=== PATIENT | male | born 1960 | race African-American/Black ===

== ENCOUNTER 2017-10-29 09:34 | Emergency (ER) | payer MEDICAID ==
[~2017-10-29] VITALS: Ht 190.5 cm; Wt 113.4 kg
[~2017-10-29 09:34] MED LIST: AMLO10TA2 PO; ASPI-39 PO; CLON0.2T; FURO-69 PO; GLIP2.5T4 PO; HYDR-2869 PO; PREG75CA PO
[2017-10-29 10:51] LABS: HEMOGLOBIN 9.6 g/dL (13.0-17.5); RED BLOOD COUNT 3.23 x10^6/uL (4.30-5.70); RED CELL DISTRIBUTION WIDTH 14.5 % (11.5-14.5); WHITE BLOOD COUNT 5.3 x10^3/uL (4.0-11.0)
[2017-10-29] MEDS ORDERED: HYDROmorphone 2 MG/ML VIAL IV ONE (11:00)
[2017-10-29] MEDS ORDERED: ONDANSETRON PF 4 MG/2 ML VIAL. IV ONE (11:00)
--- NOTE | 2017-10-29 11:03 | PHYS DOC ---
Past Medical History Past Medical History: Diabetes-Type II, Hypertension, Pancreatitis, Other Additional Past Medical Histor: NEUROPATHY Past Surgical History: Cholecystectomy, Other Additional Past Surgical Histo: LUE SHUNT, R TOES AMPUTATION Alcohol Use: None Drug Use: None Adult General Chief Complaint Chief Complaint: SKIN PROBLEM HPI HPI Patient is a 56 year old male with a history of diabetes, hypertension on dialysis (Sunday, , Sunday) presents to the ED complaining of hand pain times one month. Patient states he's been having pain in his fingers over the last month. States he has had some peeling at the end of his fingertips and bleeding. Describes the pain as sharp. Rates the pain as 8 out of 10. States his vendor analyst told him it is due to his dialysis. Denies decreased range of motion, trauma/injury, fever, chest pain, shortness of breath, dizziness, nausea /vomiting, abdominal pain, headache or weakness. Review of Systems Review of Systems Constitutional: Denies fever or chills [] Eyes: Denies change in visual acuity, redness, or eye pain [] HENT: Denies nasal congestion or sore throat [] Respiratory: Denies cough or shortness of breath [] Cardiovascular: No additional information not addressed in HPI [] GI: Denies abdominal pain, nausea, vomiting, bloody stools or diarrhea [] : Denies dysuria or hematuria [] Musculoskeletal: Denies back pain or joint pain [] Integument: Denies rash or skin lesions [] Neurologic: Denies headache, focal weakness or sensory changes [] Endocrine: Denies polyuria or polydipsia [] All other systems were reviewed and found to be within normal limits, except as documented in this note. Current Medications Current Medications Current Medications Medications (Trade) Dose Ordered Sig/Steven Start Time Stop Time Status Last Admin Dose Admin Diphenhydramine HCl (Benadryl) 25 mg 1X ONCE 10/29/17 11:30 10/29/17 11:31 DC 10/29/17 11:31 25 MG Hydralazine HCl (Apresoline Inj) 20 mg 1X ONCE 10/29/17 13:00 10/29/17 13:01 DC 10/29/17 12:59 20 MG Hydromorphone HCl (Dilaudid) 0.5 mg 1X ONCE 10/29/17 11:00 10/29/17 11:05 DC 10/29/17 11:19 0.5 MG Ondansetron HCl (Zofran) 4 mg 1X ONCE 10/29/17 11:00 10/29/17 11:04 DC 10/29/17 11:18 4 MG Allergies Allergies Allergies Coded Allergies Type Severity Reaction Last Updated Verified lisinopril Allergy Intermediate 10/29/17 Yes morphine Allergy Intermediate 10/29/17 Yes Physical Exam Physical Exam Constitutional: Well developed, well nourished, no acute distress, non-toxic appearance. [] HENT: Normocephalic, atraumatic, oropharynx moist Eyes: PERRLA, EOMI, conjunctiva normal, no discharge. [] Neck: Normal range of motion, no tenderness, supple, no stridor. [] Cardiovascular:Heart rate regular rhythm, no murmur [] Lungs & Thorax: Bilateral breath sounds clear to auscultation [] Abdomen: Bowel sounds normal, soft, no tenderness, no masses, no pulsatile masses. [] Skin: Warm, dry, no erythema, no rash. [] Back: No tenderness, no CVA tenderness. [] Extremities: PEELING SKIN TO BILATERAL FINGERTIPS. WOUND TO RIGHT THIRD FINGER TIP. 2+ PULSES. NORMAL CAPILLARY REFILL. NV INTACT. No tenderness, no cyanosis, no clubbing, ROM intact, no edema. [] Neurologic: Alert and oriented X 3, normal motor function, normal sensory function, no focal deficits noted. [] Psychologic: Affect normal, judgement normal, mood normal. [] Current Patient Data Vital Signs Vital Signs Date Time Temp Pulse Resp B/P (MAP) Pulse Ox O2 Delivery O2 Flow Rate FiO2 10/29/17 13:13 73 14 176/96 (122) 98 Room Air 10/29/17 10:31 97.9 97.9 Lab Values Laboratory Tests Test 10/29/17 10:45 White Blood Count 5.3 x10^3/uL (4.0-11.0) Red Blood Count 3.23 x10^6/uL (4.30-5.70) L Hemoglobin 9.6 g/dL (13.0-17.5) L Hematocrit 29.0 % (39.0-53.0) L Mean Corpuscular Volume 90 fL (79-100) Mean Corpuscular Hemoglobin 30 pg (25-35) Mean Corpuscular Hemoglobin Concent 33 g/dL (31-37) Red Cell Distribution Width 14.5 % (11.5-14.5) Platelet Count 126 x10^3/uL (140-400) L Sodium Level 140 mmol/L (136-145) Potassium Level 5.1 mmol/L (3.5-5.1) Chloride Level 101 mmol/L (98-107) Carbon Dioxide Level 25 mmol/L (21-32) Anion Gap 14 (6-14) Blood Urea Nitrogen 41 mg/dL (8-26) H Creatinine 8.4 mg/dL (0.7-1.3) H Estimated GFR (Cockcroft-Gault) 8.1 BUN/Creatinine Ratio 5 (6-20) L Glucose Level 321 mg/dL (70-99) H Calcium Level 8.9 mg/dL (8.5-10.1) Total Bilirubin 0.4 mg/dL (0.2-1.0) Aspartate Amino Transferase (AST) 13 U/L (15-37) L Alanine Aminotransferase (ALT) 12 U/L (16-63) L Alkaline Phosphatase 121 U/L (46-116) H Total Protein 7.4 g/dL (6.4-8.2) Albumin 3.2 g/dL (3.4-5.0) L Albumin/Globulin Ratio 0.8 (1.0-1.7) L Laboratory Tests 10/29/17 10:45 Laboratory Tests 10/29/17 10:45 EKG EKG [] Radiology/Procedures Radiology/Procedures [] Course & Med Decision Making Course & Med Decision Making Pertinent Labs and Imaging studies reviewed. (See chart for details) Discussed case with attending physician, Dr. Mas. Agrees with evaluation and plan. Patient states he really just needs something to help with the pain. Patient's fingers cleaned and dressed. Possible dialysis calcium abnormality is the cause. Discussed wound care and Neosporin treatment. Will cover with Keflex. Patient well-appearing otherwise. Blood pressure improved and pain controlled in ED. Discussed follow-up for serial blood pressure monitoring and risks if he does not. Patient states he will take his BP medicine when he returns home. Discussed follow-up with his vendor analyst this week. States he has an appointment in a few days. Discussed reasons to return to the ED. Patient understands and agrees with plan. Dragon Disclaimer Dragon Disclaimer This electronic medical record was generated, in whole or in part, using a voice recognition dictation system. Departure Departure Impression: Primary Impression: Wound, open, finger Disposition: 01 HOME, SELF-CARE Condition: IMPROVED Referrals: UNKNOWN PCP NAME (PCP) Patient Instructions: Wound Care, [id number] Additional Instructions: FOLLOW-UP WITH DR. GAGNON- CATERING SERVICE MANAGER Scripts Oxycodone/Apap 5-325 (PERCOCET 5-325 MG TABLET) 1 Each Tablet 1-2 TAB PO Q4-6HRS for 3 Days, #12 TAB Prov: VALERIA RIOS 10/29/17 Cephalexin (CEPHALEXIN) 500 Mg Capsule 1 CAP PO QID for 10 Days, #40 CAP Prov: VALERIA RIOS 10/29/17 VALERIA RIOS Oct 29, 2017 11:03
[2017-10-29] MEDS ORDERED: hydrALAZINE 20 MG/ML VIAL. IVP ONE ×2 (11:15→13:00)
[2017-10-29 11:23] LABS: CALCIUM 8.9 mg/dL (8.5-10.1); CREATININE 8.4 mg/dL (0.7-1.3); GFR 8.1; POTASSIUM 5.1 mmol/L (3.5-5.1)
[2017-10-29 11:28] LABS: ALBUMIN 3.2 g/dL (3.4-5.0); ALBUMIN/GLOBULIN RATIO 0.8 (1.0-1.7); TOTAL BILIRUBIN 0.4 mg/dL (0.2-1.0); TOTAL PROTEIN 7.4 g/dL (6.4-8.2)
[2017-10-29] MEDS ORDERED: diphenhydrAMINE 50 MG/ML VIAL IVP ONE (11:30)
[2017-10-29] MEDS ORDERED: OXYC-323 PO (11:36)
[2017-10-29] MEDS ORDERED: CEPH500C PO (11:36)
[2017-10-29 13:13] VITALS: BP 176/96
== END 2017-10-29 13:20 | disposition home or self-care (01) ==
LOC: ER 09:34
DX: S61.202A Unspecified open wound of right middle finger without damage to nail, initial encounter (principal); E11.40 Type 2 diabetes mellitus with diabetic neuropathy, unspecified; I10 Essential (primary) hypertension; Z90.49 Acquired absence of other specified parts of digestive tract; Z99.2 Dependence on renal dialysis; Z88.5 Allergy status to narcotic agent; Z88.8 Allergy status to other drugs, medicaments and biological substances; X58.XXXA Exposure to other specified factors, initial encounter; Y93.89 Activity, other specified; Y92.89 Other specified places as the place of occurrence of the external cause; Y99.8 Other external cause status
CPT/HCPCS: 36415; 80053; 85027; 96374; 96375; 96376; 99284; J0360; J1170; J1200; J2405

== ENCOUNTER 2021-07-30 13:03 | Inpatient (IN) | payer MEDICARE, MEDICAID ==
[~2021-07-30] VITALS: Ht 190.5 cm; Wt 104.3 kg
[~2021-07-30 13:03] MED LIST changes: +AMLO-187 PO; -AMLO10TA2 PO; +CEPH500C PO; +OXYC1TAB15 PO; +PREG-9 PO; -PREG75CA PO
[2021-07-30] MEDS ORDERED: fentaNYL PF VIAL 100 MCG/2 ML VIAL IVP ONE (14:30)
--- NOTE | 2021-07-30 14:34 | PHYS DOC ---
Past Medical History Past Medical History: Diabetes-Type II, Hypertension, Pancreatitis, Other Additional Past Medical Histor: NEUROPATHY, DIALYSIS Past Surgical History: Cholecystectomy, Other Additional Past Surgical Histo: LUE SHUNT, R TOES AMPUTATION Smoking Status: Never Smoker Alcohol Use: None Drug Use: None General Adult EDM: Chief Complaint: HEADACHE HPI: HPI: 60-year-old male with a history of end-stage renal disease on dialysis Sunday and Sunday presents the emergency department complaining of nausea vomiting abdominal pain and headache for the past 5 days. He reports his abdominal pain has been present for 5 days, his headache started 2 days ago and is intermittent, located across his head, not associate with any sudden onset or trauma. He has had headaches like this in the past. His last round of dialysis was earlier today and was normal. He is dialyzed through his left AV fistula. Denies any further complaints. The patient denies nausea, vomiting, fever, chills, chest pain, shortness of breath, urinary symptoms, cough, recent trauma, or any other complaints. Review of Systems: Review of Systems: ROS otherwise negative except what was mentioned in HPI Heart Score: C/O Chest Pain: No Current Medications: Current Medications Medications (Trade) Dose Ordered Sig/Steven Start Time Stop Time Status Last Admin Dose Admin Fentanyl Citrate (Fentanyl 2ml Vial) 75 mcg 1X ONCE 07/30/21 14:30 07/30/21 14:31 Allergies: Allergies: Allergies Coded Allergies Type Severity Reaction Last Updated Verified lisinopril Allergy Intermediate 10/29/17 Yes morphine Allergy Intermediate 10/29/17 Yes Physical Exam: PE: Constitutional: No acute distress, non-toxic appearance. HENT: Atraumatic, bilateral external ears normal, nose normal. Eyes: PERRLA, EOMI, conjunctiva normal, no discharge. Neck: Normal range of motion, supple, no stridor. Cardiovascular: Heart rate regular rhythm. 2+ radial pulses Lungs & Thorax: No respiratory distress, symmetrical expansion. Abdomen: Mild diffuse tenderness Skin: Warm, dry. Extremities: No tenderness, no cyanosis, ROM intact, no edema. Left AV fistula is noted Neurologic: Alert and oriented X 3, normal motor function, normal sensory function, no focal deficits noted. Non ataxic gait. GCS 15. Psychologic: Affect normal, judgment normal, mood normal. Current Patient Data: Labs: Laboratory Tests Test 07/30/21 14:25 White Blood Count 7.5 x10^3/uL (4.0-11.0) Red Blood Count 3.18 x10^6/uL (4.30-5.70) Hemoglobin 9.4 g/dL (13.0-17.5) Hematocrit 27.5 % (39.0-53.0) Mean Corpuscular Volume 87 fL (79-100) Mean Corpuscular Hemoglobin 30 pg (25-35) Mean Corpuscular Hemoglobin Concent 34 g/dL (31-37) Red Cell Distribution Width 16.5 % (11.5-14.5) Platelet Count 74 x10^3/uL (140-400) Neutrophils (%) (Auto) 83 % (31-73) Lymphocytes (%) (Auto) 8 % (24-48) Monocytes (%) (Auto) 7 % (0-9) Eosinophils (%) (Auto) 1 % (0-3) Basophils (%) (Auto) 0 % (0-3) Neutrophils # (Auto) 6.2 x10^3/uL (1.8-7.7) Lymphocytes # (Auto) 0.6 x10^3/uL (1.0-4.8) Monocytes # (Auto) 0.5 x10^3/uL (0.0-1.1) Eosinophils # (Auto) 0.1 x10^3/uL (0.0-0.7) Basophils # (Auto) 0.0 x10^3/uL (0.0-0.2) Sodium Level 136 mmol/L (136-145) Potassium Level 3.2 mmol/L (3.5-5.1) Chloride Level 97 mmol/L (98-107) Carbon Dioxide Level 32 mmol/L (21-32) Anion Gap 7 (6-14) Blood Urea Nitrogen 13 mg/dL (8-26) Creatinine 3.4 mg/dL (0.7-1.3) Estimated GFR (Cockcroft-Gault) 22.6 BUN/Creatinine Ratio 4 (6-20) Glucose Level 104 mg/dL (70-99) Calcium Level 9.4 mg/dL (8.5-10.1) Total Bilirubin 0.7 mg/dL (0.2-1.0) Aspartate Amino Transf (AST/SGOT) 45 U/L (15-37) Alanine Aminotransferase (ALT/SGPT) 55 U/L (16-63) Alkaline Phosphatase 154 U/L (46-116) Total Protein 7.3 g/dL (6.4-8.2) Albumin 2.9 g/dL (3.4-5.0) Albumin/Globulin Ratio 0.7 (1.0-1.7) Lipase 2215 U/L (73-393) Vital Signs: Vital Signs Date Time Temp Pulse Resp B/P (MAP) Pulse Ox O2 Delivery O2 Flow Rate FiO2 07/30/21 13:55 99.0 86 16 152/90 (110) 100 Room Air 99.0 EKG: EKG: Time read: 2:50 PM Normal sinus rhythm rate of 80, no ST-T wave changes, no ectopic beats, normal axis, normal FL, QRS, and QTc intervals. Impression: Normal EKG. interpreted by meKris D.O. Radiology/Procedures: Radiology/Procedures: CT HEAD/BRAIN WO Date: 07/30/2021 2:35 PM Clinical Indication: BROWN Comparison: None. Technique: 5 mm axial tomographic images were obtained of the head without contrast. These were viewed on brain and bone windows. One or more of the following dose reduction techniques were utilized: Automated exposure control (AEC), Adjustment of mA and/or kV according to patient size, Use of iterative reconstruction technique such as ASiR, CT scan done according to ALARA and image gently/image wisely Findings: The brain parenchyma is normal in attenuation. No intra- or extra-axial mass or fluid collection. No acute hemorrhage. The ventricles are normal in size, shape, and morphology. The [place]-white matter junction is normal. The subarachnoid cisterns are patent. The visualized paranasal sinuses are normal. The visualized portions of the orbits and globes are normal. The mastoid air cells are clear. The design director topogram shows no lytic lesion or fracture. Impression: No acute intracranial process. Electronically signed by: Estuardo Phan MD (07/30/2021 3:22 PM) CT ABDOMEN+PELVIS WO History: Reason: abdominal pain / Spl. Instructions: / History: Technique: Noncontrast examination of the abdomen and pelvis. Coronal and sagittal reconstructions were performed. Exposure: One or more of the following individualized dose reduction techniques were utilized for this examination: 1. Automated exposure control 2. Adjustment of the mA and/or kV according to patient size 3. Use of iterative reconstruction technique. Comparison: None Findings: Lower chest: No consolidation or pleural effusion. Abdomen and pelvis: The liver, spleen, and adrenal glands are unremarkable. Prior cholecystectomy. Mild inflammatory changes surrounding the pancreatic head. Pancreatic head calcifications. Fullness of the pancreatic head. No peripancreatic fluid collections. Mild pancreatic ductal dilatation within the region the pancreatic head and neck. Reactive duodenal wall thickening. Extensive vascular calcifications. No renal calculus. No hydronephrosis. Mild bilateral renal atrophy. Decompressed urinary bladder with wall thickening. Mild colonic diverticulosis. Normal appendix. Mild stool filled rectum. No evidence of bowel obstruction. Postoperative changes proximal small bowel. Small peripancreatic and retroperitoneal lymph nodes. No ascites. Small bilateral fat- containing inguinal hernias. Bones: Chronic left posterior rib fractures. Small lucent lesions within the iliac bones greatest on the left measures 1.3 cm. Impression: 1. Acute on chronic pancreatitis. 2. Fullness of the pancreatic head. Recommend follow-up CT or MRI with contrast to evaluate for underlying pancreatic mass. Comparison with prior imaging studies would also be of benefit. 3. Urinary bladder wall thickening likely due to nondistention and chronic outlet obstruction. Correlate for cystitis. Electronically signed by: Jassi Hardy DO (07/30/2021 3:37 PM) Course & Med Decision Making: Course & Med Decision Making Patient with evidence for pancreatitis on imaging and on lab work. We will admit the patient to the hospital for treatment for pancreatitis. GI and nephrology consults were placed. Patient was given fentanyl and Dilaudid for pain control which was difficult to achieve in the emergency department. CT head was negative today. Patient also has suspicious mass on his CT, counseled the patient on this finding, patient will likely need additional work-up while inpatient Departure Departure Impression: Primary Impression: Pancreatitis Additional Impression: Headache Disposition: ADMITTED INPATIENT Admitting Physician: MOOK (Jordan) Condition: STABLE Referrals: TNOY VALLES (PCP) KRIS CRENSHAW DO Jul 30, 2021 14:34
[2021-07-30 14:39] LABS: BASO % 0 % (0-3); EOS # 0.1 x10^3/uL (0.0-0.7); EOS % 1 % (0-3); HEMATOCRIT 27.5 % (39.0-53.0); HEMOGLOBIN 9.4 g/dL (13.0-17.5); LYMPH # 0.6 x10^3/uL (1.0-4.8); LYMPH % 8 % (24-48); MEAN CORPUSCULAR HEMOGLOBIN 30 pg (25-35); MEAN CORPUSCULAR HGB CONC 34 g/dL (31-37); MEAN CORPUSCULAR VOLUME 87 fL (79-100); MONO # 0.5 x10^3/uL (0.0-1.1); MONO % 7 % (0-9); NEUT # 6.2 x10^3/uL (1.8-7.7); NEUT % 83 % (31-73); PLATELET COUNT 74 x10^3/uL (140-400); RED BLOOD COUNT 3.18 x10^6/uL (4.30-5.70); RED CELL DISTRIBUTION WIDTH 16.5 % (11.5-14.5); WHITE BLOOD COUNT 7.5 x10^3/uL (4.0-11.0)
--- NOTE | 2021-07-30 14:51 | EKG ---
[facility] [address] [place] [address] Test Date: 2021-07-30 Test Time: 14:44:41 Pat Name: MARCIE THOMAS Department: Room: Gender: M Data Network Architect: : 1960 Requested By: KRIS CRENSHAW Order Number: [id number] Reading MD: Measurements Intervals Dane Rate: 88 P: 43 CA: 200 QRS: 11 QRSD: 96 T: 23 QT: 368 QTc: 449 Interpretive Statements SINUS RHYTHM NORMAL ECG RI6.02 Compared to ECG 07/30/2021 14:41:38 No significant changes
[2021-07-30] MEDS ORDERED: METOCLOPRAMIDE HCL 10 MG/2 ML VIAL. IVP ONE (15:15)
[2021-07-30 15:16] LABS: CALCIUM 9.4 mg/dL (8.5-10.1); CREATININE 3.4 mg/dL (0.7-1.3); GFR 22.6; POTASSIUM 3.2 mmol/L (3.5-5.1)
[2021-07-30 15:23] LABS: ALBUMIN 2.9 g/dL (3.4-5.0); ALBUMIN/GLOBULIN RATIO 0.7 (1.0-1.7); TOTAL BILIRUBIN 0.7 mg/dL (0.2-1.0); TOTAL PROTEIN 7.3 g/dL (6.4-8.2)
--- NOTE | 2021-07-30 15:24 | RAD ---
CT HEAD/BRAIN WO Date: 07/30/2021 2:35 PM Clinical Indication: BROWN Comparison: None. Technique: 5 mm axial tomographic images were obtained of the head without contrast. These were view ed on brain and bone windows. One or more of the following dose reduction techniques were utilized: A utomated exposure control (AEC), Adjustment of mA and/or kV according to patient size, Use of iterati ve reconstruction technique such as ASiR, CT scan done according to ALARA and image gently/image mehta ly Findings: The brain parenchyma is normal in attenuation. No intra- or extra-axial mass or fluid collection. No acute hemorrhage. The ventricles are normal in size, shape, and morphology. The [place]-white matter kory ction is normal. The subarachnoid cisterns are patent. The visualized paranasal sinuses are normal. The visualized portions of the orbits and globes are no rmal. The mastoid air cells are clear. The ready to wear department manager topogram shows no lytic lesion or fracture. Impression: No acute intracranial process. Electronically signed by: Estuardo Phan MD (07/30/2021 3:22 PM) [facility]
--- NOTE | 2021-07-30 15:39 | RAD ---
CT ABDOMEN+PELVIS WO History: Reason: abdominal pain / Spl. Instructions: / History: Technique: Noncontrast examination of the abdomen and pelvis. Coronal and sagittal reconstructions we re performed. Exposure: One or more of the following individualized dose reduction techniques were utilized for thi s examination: 1. Automated exposure control 2. Adjustment of the mA and/or kV according to patient size 3. Use of iterative reconstruction technique. Comparison: None Findings: Lower chest: No consolidation or pleural effusion. Abdomen and pelvis: The liver, spleen, and adrenal glands are unremarkable. Prior cholecystectomy. Mild inflammatory changes surrounding the pancreatic head. Pancreatic head calcifications. Fullness o f the pancreatic head. No peripancreatic fluid collections. Mild pancreatic ductal dilatation within the region the pancreatic head and neck. Reactive duodenal wall thickening. Extensive vascular calcifications. No renal calculus. No hydronephrosis. Mild bilateral renal atrophy . Decompressed urinary bladder with wall thickening. Mild colonic diverticulosis. Normal appendix. Mi ld stool filled rectum. No evidence of bowel obstruction. Postoperative changes proximal small bowel. Small peripancreatic and retroperitoneal lymph nodes. No ascites. Small bilateral fat-containing ing uinal hernias. Bones: Chronic left posterior rib fractures. Small lucent lesions within the iliac bones greatest on the left measures 1.3 cm. Impression: 1. Acute on chronic pancreatitis. 2. Fullness of the pancreatic head. Recommend follow-up CT or MRI with contrast to evaluate for unde rlying pancreatic mass. Comparison with prior imaging studies would also be of benefit. 3. Urinary bladder wall thickening likely due to nondistention and chronic outlet obstruction. Corre late for cystitis. Electronically signed by: Jassi Hardy DO (07/30/2021 3:37 PM) [facility]
[2021-07-30] MEDS ORDERED: fentaNYL PF VIAL 100 MCG/2 ML VIAL IVP PRN (16:15)
[2021-07-30] MEDS ORDERED: ONDANSETRON PF 4 MG/2 ML VIAL. IVP PRN ×2 (16:15→18:15)
[2021-07-30] MEDS ORDERED: ACETAMINOPHEN 325 MG TABLET. PO PRN ×2 (16:15→18:15)
[2021-07-30] MEDS ORDERED: HYDROmorphone 2 MG/ML VIAL IVP ONE (16:15)
[2021-07-30] MEDS ORDERED: ONDANSETRON PF 4 MG/2 ML VIAL. IVP ONE (16:15)
[2021-07-30] MEDS ORDERED: IV NORMAL SALINE 1000ML BAG 1,000 ML IV ONE (17:00)
[2021-07-30 17:41] VITALS: BP 156/85
--- NOTE | 2021-07-30 18:01 | PDOC1 ---
History and Physical Date of Admission Date of Admission DATE: 07/30/21 TIME: 17:35 Identification/Chief Complaint Chief Complaint Abdominal pain Source Source: Patient History of Present Illness History of Present Illness Patient is a 60-year-old male with past medical history recurrent pancreatitis, ESRD on HD Sunday//Sunday, who presents to the ED with complaints of worsening abdominal pain over the past 5 days. Reports associated nausea, vomiting, abdominal distention, and headache. He was able to obtain his regular scheduled hemodialysis today, but presents to the ED due to worsening pain. Labs on admission showed hemoglobin 9.4, hematocrit 27.5, potassium 3.2, creatinine 3.4, AST 45, ALT 55, alk phos 154, albumin 2.9, lipase 2215, triglycerides 71. Admits to history of pancreatitis with cholecystectomy. He has been seen by a shop blacksmith in the past and told that his pancreatitis was probably due to spicy foods. He denies history of tobacco use, alcohol use, drug use Past Medical History Past Medical History DM2, HTN, ESRD on HD, neuropathy Past Surgical History Past Surgical History Cholecystectomy, left arm fistula, left BKA Family History Family History HTN Social History Smoke: No ALCOHOL: none Drugs: None, Ecstasy Current Problem List Problem List Problems Medical Problems: (1) Headache Status: Acute (2) Pancreatitis Status: Acute Current Medications Current Medications Current Medications Fentanyl Citrate (Fentanyl 2ml Vial) 75 mcg 1X ONCE IVP Last administered on 07/30/21at 15:18; Start 07/30/21 at 14:30; Stop 07/30/21 at 14:31; Status DC Metoclopramide HCl (Reglan Vial) 10 mg 1X ONCE IVP Last administered on 07/30/21at 15:20; Start 07/30/21 at 15:15; Stop 07/30/21 at 15:20; Status DC Hydromorphone HCl (Dilaudid) 1 mg 1X ONCE IVP Last administered on 07/30/21at 16:40; Start 07/30/21 at 16:15; Stop 07/30/21 at 16:16; Status DC Ondansetron HCl (Zofran) 4 mg 1X ONCE IVP Last administered on 07/30/21at 16:40; Start 07/30/21 at 16:15; Stop 07/30/21 at 16:16; Status DC Ondansetron HCl (Zofran) 4 mg PRN Q8HRS PRN IVP NAUSEA/VOMITING; Start 07/30/21 at 16:15; Stop 07/31/21 at 16:14 Fentanyl Citrate (Fentanyl 2ml Vial) 50 mcg PRN Q2HR PRN IVP PAIN; Start 07/30/21 at 16:15; Stop 07/31/21 at 16:14 Acetaminophen (Tylenol) 650 mg PRN Q4HRS PRN PO FEVER > 100.3'F; Start 07/30/21 at 16:15; Stop 07/31/21 at 16:14 Sodium Chloride 1,000 ml @ 100 mls/hr 1X ONCE IV ; Start 07/30/21 at 17:00; Stop 07/31/21 at 02:59 Active Scripts Active Percocet 5-325 Mg Tablet (Oxycodone/Acetaminophen) 1 Each Tablet 1-2 Tab PO Q4- 6HRS 3 Days Cephalexin 500 Mg Capsule 1 Cap PO QID 10 Days Reported Glipizide Er (Glipizide) 2.5 Mg Tab.er.24 2.5 Mg PO Clonidine Hcl 0.2 Mg Tablet Amlodipine Besylate 10 Mg Tablet 10 Mg PO Eda Chewable (Aspirin) 81 Mg Tab.chew 81 Mg PO Lasix (Furosemide) 20 Mg Tablet 20 Mg PO Lyrica (Pregabalin) 75 Mg Capsule 75 Mg PO Hydralazine Hcl 50 Mg Tablet 50 Mg PO Allergies Allergies: Coded Allergies: lisinopril (Verified Allergy, Intermediate, 10/29/17) morphine (Verified Allergy, Intermediate, 10/29/17) ROS Review of System GENERAL: No history of weight change, weakness or fevers. SKIN: No bruising, hair changes or rashes. EYES: No blurred, double or loss of vision. NOSE AND THROAT: No history of nosebleeds, hoarseness or sore throat. HEART: Denies chest pain, denies palpitations. LUNGS: Denies cough, hemoptysis, wheezing or shortness of breath. GASTROINTESTINAL: Abdominal pain, nausea, vomiting, abdominal distention. GENITOURINARY: Denies dysuria, frequency, urgency, hematuria. NEUROLOGIC: Headache. Denies history of numbness, tingling, tremor or weakness. PSYCHIATRIC: Denies anxiety, denies depression. ENDOCRINE: No history of heat or cold intolerance, polyuria or polydipsia. EXTREMITIES: Denies muscle weakness, joint pain, pain on walking or stiffness. Physical Exam Physical Exam General: Alert, Oriented X3, Cooperative, No acute distress HEENT: PERRLA, EOMI Lungs: Epigastric tenderness. Abdominal distention. Clear to auscultation, Normal air movement Heart: RRR, no murmurs Cardiovascular: S1, S2 Abdomen: Epigastric tenderness. Abdominal distention. Normal bowel sounds, Soft. Extremities: Left BKA. No clubbing, No cyanosis Skin: No rashes, No significant lesion Neuro: Normal speech, Normal tone, Sensation intact Psych/Mental Status: Mental status NL, Mood NL Vitals Vitals Vital Signs Date Time Temp Pulse Resp B/P (MAP) Pulse Ox O2 Delivery O2 Flow Rate FiO2 07/30/21 16:36 94 100 07/30/21 13:55 99.0 16 152/90 (110) Room Air 99.0 Labs Labs Laboratory Tests Test 07/30/21 14:25 White Blood Count 7.5 x10^3/uL (4.0-11.0) Red Blood Count 3.18 x10^6/uL (4.30-5.70) Hemoglobin 9.4 g/dL (13.0-17.5) Hematocrit 27.5 % (39.0-53.0) Mean Corpuscular Volume 87 fL (79-100) Mean Corpuscular Hemoglobin 30 pg (25-35) Mean Corpuscular Hemoglobin Concent 34 g/dL (31-37) Red Cell Distribution Width 16.5 % (11.5-14.5) Platelet Count 74 x10^3/uL (140-400) Neutrophils (%) (Auto) 83 % (31-73) Lymphocytes (%) (Auto) 8 % (24-48) Monocytes (%) (Auto) 7 % (0-9) Eosinophils (%) (Auto) 1 % (0-3) Basophils (%) (Auto) 0 % (0-3) Neutrophils # (Auto) 6.2 x10^3/uL (1.8-7.7) Lymphocytes # (Auto) 0.6 x10^3/uL (1.0-4.8) Monocytes # (Auto) 0.5 x10^3/uL (0.0-1.1) Eosinophils # (Auto) 0.1 x10^3/uL (0.0-0.7) Basophils # (Auto) 0.0 x10^3/uL (0.0-0.2) Sodium Level 136 mmol/L (136-145) Potassium Level 3.2 mmol/L (3.5-5.1) Chloride Level 97 mmol/L (98-107) Carbon Dioxide Level 32 mmol/L (21-32) Anion Gap 7 (6-14) Blood Urea Nitrogen 13 mg/dL (8-26) Creatinine 3.4 mg/dL (0.7-1.3) Estimated GFR (Cockcroft-Gault) 22.6 BUN/Creatinine Ratio 4 (6-20) Glucose Level 104 mg/dL (70-99) Calcium Level 9.4 mg/dL (8.5-10.1) Total Bilirubin 0.7 mg/dL (0.2-1.0) Aspartate Amino Transf (AST/SGOT) 45 U/L (15-37) Alanine Aminotransferase (ALT/SGPT) 55 U/L (16-63) Alkaline Phosphatase 154 U/L (46-116) Total Protein 7.3 g/dL (6.4-8.2) Albumin 2.9 g/dL (3.4-5.0) Albumin/Globulin Ratio 0.7 (1.0-1.7) Triglycerides Level 71 mg/dL (0-150) Lipase 2215 U/L (73-393) Laboratory Tests Test 07/30/21 14:25 White Blood Count 7.5 x10^3/uL (4.0-11.0) Red Blood Count 3.18 x10^6/uL (4.30-5.70) Hemoglobin 9.4 g/dL (13.0-17.5) Hematocrit 27.5 % (39.0-53.0) Mean Corpuscular Volume 87 fL (79-100) Mean Corpuscular Hemoglobin 30 pg (25-35) Mean Corpuscular Hemoglobin Concent 34 g/dL (31-37) Red Cell Distribution Width 16.5 % (11.5-14.5) Platelet Count 74 x10^3/uL (140-400) Neutrophils (%) (Auto) 83 % (31-73) Lymphocytes (%) (Auto) 8 % (24-48) Monocytes (%) (Auto) 7 % (0-9) Eosinophils (%) (Auto) 1 % (0-3) Basophils (%) (Auto) 0 % (0-3) Neutrophils # (Auto) 6.2 x10^3/uL (1.8-7.7) Lymphocytes # (Auto) 0.6 x10^3/uL (1.0-4.8) Monocytes # (Auto) 0.5 x10^3/uL (0.0-1.1) Eosinophils # (Auto) 0.1 x10^3/uL (0.0-0.7) Basophils # (Auto) 0.0 x10^3/uL (0.0-0.2) Sodium Level 136 mmol/L (136-145) Potassium Level 3.2 mmol/L (3.5-5.1) Chloride Level 97 mmol/L (98-107) Carbon Dioxide Level 32 mmol/L (21-32) Anion Gap 7 (6-14) Blood Urea Nitrogen 13 mg/dL (8-26) Creatinine 3.4 mg/dL (0.7-1.3) Estimated GFR (Cockcroft-Gault) 22.6 BUN/Creatinine Ratio 4 (6-20) Glucose Level 104 mg/dL (70-99) Calcium Level 9.4 mg/dL (8.5-10.1) Total Bilirubin 0.7 mg/dL (0.2-1.0) Aspartate Amino Transf (AST/SGOT) 45 U/L (15-37) Alanine Aminotransferase (ALT/SGPT) 55 U/L (16-63) Alkaline Phosphatase 154 U/L (46-116) Total Protein 7.3 g/dL (6.4-8.2) Albumin 2.9 g/dL (3.4-5.0) Albumin/Globulin Ratio 0.7 (1.0-1.7) Triglycerides Level 71 mg/dL (0-150) Lipase 2215 U/L (73-393) Images Images PATIENT: MARCIE VARGAS ACCOUNT: [id number] : 1960 LOCATION: ER AGE: 60 SEX: M EXAM STATUS: REG ER ORD. PHYSICIAN: KRIS CRENSHAW DO REASON: abdominal pain PROCEDURE: CT ABDOMEN PELVIS WO CONTRAST CT ABDOMEN+PELVIS WO History: Reason: abdominal pain / Spl. Instructions: / History: Technique: Noncontrast examination of the abdomen and pelvis. Coronal and sagittal reconstructions were performed. Exposure: One or more of the following individualized dose reduction techniques were utilized for this examination: 1. Automated exposure control 2. Adjustment of the mA and/or kV according to patient size 3. Use of iterative reconstruction technique. Comparison: None Findings: Lower chest: No consolidation or pleural effusion. Abdomen and pelvis: The liver, spleen, and adrenal glands are unremarkable. Prior cholecystectomy. Mild inflammatory changes surrounding the pancreatic head. Pancreatic head calcifications. Fullness of the pancreatic head. No peripancreatic fluid collections. Mild pancreatic ductal dilatation within the region the pancreatic head and neck. Reactive duodenal wall thickening. Extensive vascular calcifications. No renal calculus. No hydronephrosis. Mild bilateral renal atrophy. Decompressed urinary bladder with wall thickening. Mild colonic diverticulosis. Normal appendix. Mild stool filled rectum. No evidence of bowel obstruction. Postoperative changes proximal small bowel. Small peripancreatic and retroperitoneal lymph nodes. No ascites. Small bilateral fat-containing inguinal hernias. Bones: Chronic left posterior rib fractures. Small lucent lesions within the iliac bones greatest on the left measures 1.3 cm. Impression: 1. Acute on chronic pancreatitis. 2. Fullness of the pancreatic head. Recommend follow-up CT or MRI with contrast to evaluate for underlying pancreatic mass. Comparison with prior imaging studies would also be of benefit. 3. Urinary bladder wall thickening likely due to nondistention and chronic outlet obstruction. Correlate for cystitis. VTE Prophylaxis Ordered VTE Prophylaxis Devices: No VTE Pharmacological Prophylaxi: Yes Assessment/Plan Assessment/Plan Acute on chronic pancreatitis ESRD on HD Normocytic anemia Moderate malnutrition Plan: Provide judicious IV fluids given history of ESRD. Difficult situation that may require IV fluids followed by ultrafiltration for removal of possible fluid overload. Consultation placed to nephrology Consultation placed to GI Given CT findings of fullness of pancreatic head, may be necessary to repeat CT after IV fluids or obtain MRI to further evaluate for underlying pancreatic mass as there are no prior images to compare. FEN - NPO for now PPX - Heparin FULL CODE Dispo - inpatient for above Patient and his brother (Hunter Vargas) as surrogate decision-maker Justifications for Admission Other Justification XIN GUZMÁN MD Jul 30, 2021 18:01
--- NOTE | 2021-07-30 18:11 | NUR ---
pt's pharmacy called[facility] and [address] in [facility] to obtain updated list of home meds. Pharmacy closed at this time.
[2021-07-30] MEDS ORDERED: DEXTROSE 50% 25 GM / 50ML DISP.SYRIN. IV PRN (18:15)
[2021-07-30] MEDS ORDERED: CALCIUM CARBONATE 500 MG TAB.CHEW PO PRN (18:15)
[2021-07-30] MEDS ORDERED: diphenhydrAMINE 50 MG/ML VIAL IVP PRN (18:15)
[2021-07-30] MEDS ORDERED: hydrALAZINE 20 MG/ML VIAL. IVP PRN (18:15)
[2021-07-30] MEDS: HYDROmorphone 2 MG/ML VIAL IVP PRN (20:19)
[2021-07-30] MEDS: HEPARIN for SUB-Q USE 5,000 UNIT/ML VIAL. SQ SCH (22:38)
[2021-07-30 23:29] VITALS: BP 135/78
[2021-07-31] MEDS: HYDROmorphone 2 MG/ML VIAL IVP PRN ×4 (02:33→23:10)
[2021-07-31 03:29] VITALS: BP 159/73
[2021-07-31 05:28] LABS: BASO % 1 % (0-3); EOS # 0.1 x10^3/uL (0.0-0.7); EOS % 2 % (0-3); HEMATOCRIT 25.2 % (39.0-53.0); HEMOGLOBIN 8.5 g/dL (13.0-17.5); LYMPH # 0.6 x10^3/uL (1.0-4.8); LYMPH % 14 % (24-48); MEAN CORPUSCULAR HEMOGLOBIN 30 pg (25-35); MEAN CORPUSCULAR HGB CONC 34 g/dL (31-37); MEAN CORPUSCULAR VOLUME 88 fL (79-100); MONO # 0.4 x10^3/uL (0.0-1.1); MONO % 9 % (0-9); NEUT # 2.9 x10^3/uL (1.8-7.7); NEUT % 74 % (31-73); PLATELET COUNT 64 x10^3/uL (140-400); RED BLOOD COUNT 2.85 x10^6/uL (4.30-5.70); RED CELL DISTRIBUTION WIDTH 16.8 % (11.5-14.5)
[2021-07-31 05:44] LABS: CALCIUM 8.6 mg/dL (8.5-10.1); CREATININE 4.5 mg/dL (0.7-1.3); GFR 16.4
[2021-07-31] MEDS: HEPARIN for SUB-Q USE 5,000 UNIT/ML VIAL. SQ SCH ×3 (06:04→20:57)
[2021-07-31 07:00] VITALS: BP 140/79
[2021-07-31] MEDS: INSULIN LISPRO 300 UNITS/3 ML VIAL. SQ SCH ×3 (08:00→17:00)
--- NOTE | 2021-07-31 08:25 | PDOC ---
[employer] PROGRESS NOTE Date of Service DOS: DATE: 07/31/21 TIME: 08:21 Chief Complaint Chief Complaint Acute on chronic pancreatitis ESRD on HD Normocytic anemia Moderate malnutrition Plan: Provide judicious IV fluids given history of ESRD. Difficult situation that may require IV fluids followed by ultrafiltration for removal of possible fluid overload. Consultation placed to nephrology Consultation placed to GI Given CT findings of fullness of pancreatic head, may be necessary to repeat CT after IV fluids or obtain MRI to further evaluate for underlying pancreatic mass as there are no prior images to compare. FEN - NPO for now PPX - Heparin FULL CODE Dispo - inpatient for above Patient and his brother (Hunter Vargas) as surrogate decision-maker History of Present Illness History of Present Illness Patient is a 60-year-old male with past medical history recurrent pancreatitis, ESRD on HD Sunday//Sunday, who presents to the ED with complaints of worsening abdominal pain over the past 5 days. Reports associated nausea, vomiting, abdominal distention, and headache. He was able to obtain his regular scheduled hemodialysis today, but presents to the ED due to worsening pain. Labs on admission showed hemoglobin 9.4, hematocrit 27.5, potassium 3.2, creatinine 3.4, AST 45, ALT 55, alk phos 154, albumin 2.9, lipase 2215, triglycerides 71. Admits to history of pancreatitis with cholecystectomy. He has been seen by a furniture designer in the past and told that his pancreatitis was probably due to spicy foods. He denies history of tobacco use, alcohol use, drug use 07/31/2021: Afebrile, breathing on room air. Lipase improving. Epigastric pain improving. Complains of some itching; will order prn benadryl. Hypokalemia noted today, (K-3.0). Will provide additional 1 L normal saline, and be very cautious regarding volume overload. We will try to continue to coordinate IV fluids with HD/ultrafiltration. Appreciate nephrology and GI recommendations in the management of this patient. Vitals/I&O Vitals/I&O: Vital Signs Date Time Temp Pulse Resp B/P (MAP) Pulse Ox O2 Delivery O2 Flow Rate FiO2 07/31/21 07:00 97.7 82 18 140/79 (99) 99 Room Air 97.7 I & O 07/30/21 07/30/21 07/31/21 15:00 23:00 07:00 Intake Total 0 ml 0 ml Balance 0 ml 0 ml Physical Exam General: Alert, mild distress Heart: Regular rate Lungs: Clear Abdomen: Soft, Other (Epigastric tenderness) Extremities: No clubbing, No cyanosis Skin: No rashes, No breakdown Labs Labs: Laboratory Tests Test 07/30/21 14:25 07/30/21 20:18 07/31/21 04:00 07/31/21 04:30 White Blood Count 7.5 x10^3/uL (4.0-11.0) 4.0 x10^3/uL (4.0-11.0) Red Blood Count 3.18 x10^6/uL (4.30-5.70) 2.85 x10^6/uL (4.30-5.70) Hemoglobin 9.4 g/dL (13.0-17.5) 8.5 g/dL (13.0-17.5) Hematocrit 27.5 % (39.0-53.0) 25.2 % (39.0-53.0) Mean Corpuscular Volume 87 fL (79-100) 88 fL (79-100) Mean Corpuscular Hemoglobin 30 pg (25-35) 30 pg (25-35) Mean Corpuscular Hemoglobin Concent 34 g/dL (31-37) 34 g/dL (31-37) Red Cell Distribution Width 16.5 % (11.5-14.5) 16.8 % (11.5-14.5) Platelet Count 74 x10^3/uL (140-400) 64 x10^3/uL (140-400) Neutrophils (%) (Auto) 83 % (31-73) 74 % (31-73) Lymphocytes (%) (Auto) 8 % (24-48) 14 % (24-48) Monocytes (%) (Auto) 7 % (0-9) 9 % (0-9) Eosinophils (%) (Auto) 1 % (0-3) 2 % (0-3) Basophils (%) (Auto) 0 % (0-3) 1 % (0-3) Neutrophils # (Auto) 6.2 x10^3/uL (1.8-7.7) 2.9 x10^3/uL (1.8-7.7) Lymphocytes # (Auto) 0.6 x10^3/uL (1.0-4.8) 0.6 x10^3/uL (1.0-4.8) Monocytes # (Auto) 0.5 x10^3/uL (0.0-1.1) 0.4 x10^3/uL (0.0-1.1) Eosinophils # (Auto) 0.1 x10^3/uL (0.0-0.7) 0.1 x10^3/uL (0.0-0.7) Basophils # (Auto) 0.0 x10^3/uL (0.0-0.2) 0.0 x10^3/uL (0.0-0.2) Sodium Level 136 mmol/L (136-145) 138 mmol/L (136-145) Potassium Level 3.2 mmol/L (3.5-5.1) 3.0 mmol/L (3.5-5.1) Chloride Level 97 mmol/L (98-107) 99 mmol/L (98-107) Carbon Dioxide Level 32 mmol/L (21-32) 31 mmol/L (21-32) Anion Gap 7 (6-14) 8 (6-14) Blood Urea Nitrogen 13 mg/dL (8-26) 20 mg/dL (8-26) Creatinine 3.4 mg/dL (0.7-1.3) 4.5 mg/dL (0.7-1.3) Estimated GFR (Cockcroft-Gault) 22.6 16.4 BUN/Creatinine Ratio 4 (6-20) Glucose Level 104 mg/dL (70-99) 85 mg/dL (70-99) Calcium Level 9.4 mg/dL (8.5-10.1) 8.6 mg/dL (8.5-10.1) Total Bilirubin 0.7 mg/dL (0.2-1.0) Aspartate Amino Transf (AST/SGOT) 45 U/L (15-37) Alanine Aminotransferase (ALT/SGPT) 55 U/L (16-63) Alkaline Phosphatase 154 U/L (46-116) Total Protein 7.3 g/dL (6.4-8.2) Albumin 2.9 g/dL (3.4-5.0) Albumin/Globulin Ratio 0.7 (1.0-1.7) Triglycerides Level 71 mg/dL (0-150) Lipase 2215 U/L (73-393) 1465 U/L (73-393) Glucose (Fingerstick) 99 mg/dL (70-99) Test 07/31/21 07:22 Glucose (Fingerstick) 87 mg/dL (70-99) Assessment and Plan Assessmemt and Plan Problems Medical Problems: (1) Headache Status: Acute (2) Pancreatitis Status: Acute Comment Review of Relevant I have reviewed the following items giselle (where applicable) has been applied. Medications: Current Medications Medications (Trade) Dose Ordered Sig/Steven Route PRN Reason Start Time Stop Time Status Last Admin Dose Admin Fentanyl Citrate (Fentanyl 2ml Vial) 75 mcg 1X ONCE IVP 07/30/21 14:30 07/30/21 14:31 DC 07/30/21 15:18 Metoclopramide HCl (Reglan Vial) 10 mg 1X ONCE IVP 07/30/21 15:15 07/30/21 15:20 DC 07/30/21 15:20 Hydromorphone HCl (Dilaudid) 1 mg 1X ONCE IVP 07/30/21 16:15 07/30/21 16:16 DC 07/30/21 16:40 Ondansetron HCl (Zofran) 4 mg 1X ONCE IVP 07/30/21 16:15 07/30/21 16:16 DC 07/30/21 16:40 Sodium Chloride 1,000 ml @ 100 mls/hr 1X ONCE IV 07/30/21 17:00 07/31/21 02:59 DC 07/30/21 19:00 Hydromorphone HCl (Dilaudid) 2 mg PRN Q4HRS PRN IVP PAIN 07/30/21 18:00 07/31/21 02:33 Heparin Sodium (Porcine) (Heparin Sodium) 5,000 unit Q8HRS SQ 07/30/21 22:00 07/31/21 06:04 Justifications for Admission General Conditions Other justification for admit: Acute on chronic pancreatitis Other Justification XIN GUZMÁN MD Jul 31, 2021 08:25
[2021-07-31] MEDS ORDERED: IV NORMAL SALINE 1000ML BAG 1,000 ML IV ONE (08:30)
[2021-07-31] MEDS: diphenhydrAMINE 50 MG/ML VIAL IVP PRN ×2 (09:34→16:43)
[2021-07-31 11:00] VITALS: BP 155/88
[2021-07-31 15:00] VITALS: BP 164/83
--- NOTE | 2021-07-31 15:09 | PDOC2 ---
CONSULT Date of Consult Date of Consult DATE: 07/31/21 TIME: 15:01 Reason for Consult Reason for Consult: ESRD Source Source: Chart review, Patient History of Present Illness Reason for Visit: Patient is a 60-year-old male with past medical history recurrent pancreatitis, ESRD on HD Sunday//Sunday, who presents to the ED with complaints of worsening abdominal pain over the past 5 days. Reports associated nausea, vomiting, abdominal distention, and headache. Denies Fever/Chills. No SOB or CP . He had Dialysis on Sunday He denies history of tobacco use, alcohol use, drug use Past Medical History Past Medical History DM2, HTN, ESRD on HD, neuropathy Past Surgical History Past Surgical History Cholecystectomy, left arm fistula, left BKA Family History Family History HTN Social History Social History Smoke: No ALCOHOL: none Drugs: Ecstasy No ALCOHOL: none Drugs: None, Ecstasy Lives: Friends Current Problem List Problem List Problems Medical Problems: (1) Headache Status: Acute (2) Pancreatitis Status: Acute Current Medications Current Medications Current Medications Fentanyl Citrate (Fentanyl 2ml Vial) 75 mcg 1X ONCE IVP Last administered on 07/30/21at 15:18; Start 07/30/21 at 14:30; Stop 07/30/21 at 14:31; Status DC Metoclopramide HCl (Reglan Vial) 10 mg 1X ONCE IVP Last administered on 07/30/21at 15:20; Start 07/30/21 at 15:15; Stop 07/30/21 at 15:20; Status DC Hydromorphone HCl (Dilaudid) 1 mg 1X ONCE IVP Last administered on 07/30/21at 16:40; Start 07/30/21 at 16:15; Stop 07/30/21 at 16:16; Status DC Ondansetron HCl (Zofran) 4 mg 1X ONCE IVP Last administered on 07/30/21at 16:40; Start 07/30/21 at 16:15; Stop 07/30/21 at 16:16; Status DC Ondansetron HCl (Zofran) 4 mg PRN Q8HRS PRN IVP NAUSEA/VOMITING; Start 07/30/21 at 16:15; Stop 07/31/21 at 16:14 Fentanyl Citrate (Fentanyl 2ml Vial) 50 mcg PRN Q2HR PRN IVP PAIN; Start 07/30/21 at 16:15; Stop 07/31/21 at 16:14 Acetaminophen (Tylenol) 650 mg PRN Q4HRS PRN PO FEVER > 100.3'F; Start 07/30/21 at 16:15; Stop 07/31/21 at 16:14 Sodium Chloride 1,000 ml @ 100 mls/hr 1X ONCE IV Last administered on 07/30/21at 19:00; Start 07/30/21 at 17:00; Stop 07/31/21 at 02:59; Status DC Hydromorphone HCl (Dilaudid) 2 mg PRN Q4HRS PRN IVP PAIN Last administered on 07/31/21at 09:28; Start 07/30/21 at 18:00 Ondansetron HCl (Zofran) 4 mg PRN Q6HRS PRN IVP NAUSEA/VOMITING; Start 07/30/21 at 18:15 Calcium Carbonate/ Glycine (Tums) 500 mg PRN Q3HRS PRN PO UPSET STOMACH; Start 07/30/21 at 18:15 Acetaminophen (Tylenol) 650 mg PRN Q6HRS PRN PO Headaches, Temp > 101.5F; Start 07/30/21 at 18:15 Heparin Sodium (Porcine) (Heparin Sodium) 5,000 unit Q8HRS SQ Last administered on 07/31/21at 13:50; Start 07/30/21 at 22:00 Diphenhydramine HCl (Benadryl) 25 mg PRN QHS PRN IVP INSOMNIA; Start 07/30/21 at 18:15 Hydralazine HCl (Apresoline Inj) 10 mg PRN Q4HRS PRN IVP ELEVATED BP, SEE COMMENTS; Start 07/30/21 at 18:15 Insulin Human Lispro (HumaLOG) 0-9 UNITS TIDWMEALS SQ ; Start 07/31/21 at 08:00 Dextrose (Dextrose 50%-Water Syringe) 12.5 gm PRN Q15MIN PRN IV SEE COMMENTS; Start 07/30/21 at 18:15 Sodium Chloride 1,000 ml @ 100 mls/hr 1X ONCE IV Last administered on 07/31/21at 09:28; Start 07/31/21 at 08:30; Stop 07/31/21 at 18:29 Diphenhydramine HCl (Benadryl) 25 mg PRN Q6HRS PRN IVP ITCHING Last administered on 07/31/21at 09:34; Start 07/31/21 at 09:00 Active Scripts Active Percocet 5-325 Mg Tablet (Oxycodone/Acetaminophen) 1 Each Tablet 1-2 Tab PO Q4-6HRS 3 Days Cephalexin 500 Mg Capsule 1 Cap PO QID 10 Days Reported Glipizide Er (Glipizide) 2.5 Mg Tab.er.24 2.5 Mg PO Clonidine Hcl 0.2 Mg Tablet Amlodipine Besylate 10 Mg Tablet 10 Mg PO Eda Chewable (Aspirin) 81 Mg Tab.chew 81 Mg PO Lasix (Furosemide) 20 Mg Tablet 20 Mg PO Lyrica (Pregabalin) 75 Mg Capsule 75 Mg PO Hydralazine Hcl 50 Mg Tablet 50 Mg PO Allergies Allergies: Coded Allergies: lisinopril (Verified Allergy, Intermediate, 10/29/17) morphine (Verified Allergy, Intermediate, 10/29/17) ROS Review of System As per HPI, rest of the ROS is negative Physical Exam Physical Exam General: A No acute distress HEENT: PERRLA, EOMI, OM moist Lungs: Clear to auscultation, Non labored Heart: RRR, no murmurs Cardiovascular: S1, S2 Abdomen: Epigastric tenderness. Abdominal distention. Normal bowel sounds, Soft. Extremities: Left BKA. No clubbing, No cyanosis Skin: No rashes, No significant lesion Neuro: Normal speech, Normal tone, Sensation intact Psych/Mental Status: Mental status NL, Mood NL No persaud, No CVA or SP tenderness Vital Signs Vital Signs Date Time Temp Pulse Resp B/P (MAP) Pulse Ox O2 Delivery O2 Flow Rate FiO2 07/31/21 11:00 97.9 88 18 155/88 (110) 95 Room Air 97.9 Assessment & Plan ESRD on HD TTS, last Dialysis was on Sunday, Currently No indication for di alysis Acute on chronic pancreatitis- CT findings of fullness of pancreatic head, Anemia- Monitor HTN- Home antihypertensives DM per primary Chronic Bladder Outlet obstruction on CT Labs Labs Laboratory Tests Test 07/30/21 14:25 07/30/21 20:18 07/31/21 04:00 07/31/21 04:30 White Blood Count 7.5 x10^3/uL (4.0-11.0) 4.0 x10^3/uL (4.0-11.0) Red Blood Count 3.18 x10^6/uL (4.30-5.70) 2.85 x10^6/uL (4.30-5.70) Hemoglobin 9.4 g/dL (13.0-17.5) 8.5 g/dL (13.0-17.5) Hematocrit 27.5 % (39.0-53.0) 25.2 % (39.0-53.0) Mean Corpuscular Volume 87 fL (79-100) 88 fL (79-100) Mean Corpuscular Hemoglobin 30 pg (25-35) 30 pg (25-35) Mean Corpuscular Hemoglobin Concent 34 g/dL (31-37) 34 g/dL (31-37) Red Cell Distribution Width 16.5 % (11.5-14.5) 16.8 % (11.5-14.5) Platelet Count 74 x10^3/uL (140-400) 64 x10^3/uL (140-400) Neutrophils (%) (Auto) 83 % (31-73) 74 % (31-73) Lymphocytes (%) (Auto) 8 % (24-48) 14 % (24-48) Monocytes (%) (Auto) 7 % (0-9) 9 % (0-9) Eosinophils (%) (Auto) 1 % (0-3) 2 % (0-3) Basophils (%) (Auto) 0 % (0-3) 1 % (0-3) Neutrophils # (Auto) 6.2 x10^3/uL (1.8-7.7) 2.9 x10^3/uL (1.8-7.7) Lymphocytes # (Auto) 0.6 x10^3/uL (1.0-4.8) 0.6 x10^3/uL (1.0-4.8) Monocytes # (Auto) 0.5 x10^3/uL (0.0-1.1) 0.4 x10^3/uL (0.0-1.1) Eosinophils # (Auto) 0.1 x10^3/uL (0.0-0.7) 0.1 x10^3/uL (0.0-0.7) Basophils # (Auto) 0.0 x10^3/uL (0.0-0.2) 0.0 x10^3/uL (0.0-0.2) Sodium Level 136 mmol/L (136-145) 138 mmol/L (136-145) Potassium Level 3.2 mmol/L (3.5-5.1) 3.0 mmol/L (3.5-5.1) Chloride Level 97 mmol/L (98-107) 99 mmol/L (98-107) Carbon Dioxide Level 32 mmol/L (21-32) 31 mmol/L (21-32) Anion Gap 7 (6-14) 8 (6-14) Blood Urea Nitrogen 13 mg/dL (8-26) 20 mg/dL (8-26) Creatinine 3.4 mg/dL (0.7-1.3) 4.5 mg/dL (0.7-1.3) Estimated GFR (Cockcroft-Gault) 22.6 16.4 BUN/Creatinine Ratio 4 (6-20) Glucose Level 104 mg/dL (70-99) 85 mg/dL (70-99) Calcium Level 9.4 mg/dL (8.5-10.1) 8.6 mg/dL (8.5-10.1) Total Bilirubin 0.7 mg/dL (0.2-1.0) Aspartate Amino Transf (AST/SGOT) 45 U/L (15-37) Alanine Aminotransferase (ALT/SGPT) 55 U/L (16-63) Alkaline Phosphatase 154 U/L (46-116) Total Protein 7.3 g/dL (6.4-8.2) Albumin 2.9 g/dL (3.4-5.0) Albumin/Globulin Ratio 0.7 (1.0-1.7) Triglycerides Level 71 mg/dL (0-150) Lipase 2215 U/L (73-393) 1465 U/L (73-393) Glucose (Fingerstick) 99 mg/dL (70-99) Test 07/31/21 07:22 07/31/21 11:50 Glucose (Fingerstick) 87 mg/dL (70-99) 87 mg/dL (70-99) Laboratory Tests Test 07/30/21 20:18 07/31/21 04:00 07/31/21 04:30 07/31/21 07:22 Glucose (Fingerstick) 99 mg/dL (70-99) 87 mg/dL (70-99) Lipase 1465 U/L (73-393) White Blood Count 4.0 x10^3/uL (4.0-11.0) Red Blood Count 2.85 x10^6/uL (4.30-5.70) Hemoglobin 8.5 g/dL (13.0-17.5) Hematocrit 25.2 % (39.0-53.0) Mean Corpuscular Volume 88 fL (79-100) Mean Corpuscular Hemoglobin 30 pg (25-35) Mean Corpuscular Hemoglobin Concent 34 g/dL (31-37) Red Cell Distribution Width 16.8 % (11.5-14.5) Platelet Count 64 x10^3/uL (140-400) Neutrophils (%) (Auto) 74 % (31-73) Lymphocytes (%) (Auto) 14 % (24-48) Monocytes (%) (Auto) 9 % (0-9) Eosinophils (%) (Auto) 2 % (0-3) Basophils (%) (Auto) 1 % (0-3) Neutrophils # (Auto) 2.9 x10^3/uL (1.8-7.7) Lymphocytes # (Auto) 0.6 x10^3/uL (1.0-4.8) Monocytes # (Auto) 0.4 x10^3/uL (0.0-1.1) Eosinophils # (Auto) 0.1 x10^3/uL (0.0-0.7) Basophils # (Auto) 0.0 x10^3/uL (0.0-0.2) Sodium Level 138 mmol/L (136-145) Potassium Level 3.0 mmol/L (3.5-5.1) Chloride Level 99 mmol/L (98-107) Carbon Dioxide Level 31 mmol/L (21-32) Anion Gap 8 (6-14) Blood Urea Nitrogen 20 mg/dL (8-26) Creatinine 4.5 mg/dL (0.7-1.3) Estimated GFR (Cockcroft-Gault) 16.4 Glucose Level 85 mg/dL (70-99) Calcium Level 8.6 mg/dL (8.5-10.1) Test 07/31/21 11:50 Glucose (Fingerstick) 87 mg/dL (70-99) Review All relevant outside records, renal labs, imaging studies, telemetry/EKG's were reviewed. Images Images CT ABDOMEN+PELVIS WO History: Reason: abdominal pain / Spl. Instructions: / History: Technique: Noncontrast examination of the abdomen and pelvis. Coronal and sagittal reconstructions were performed. Exposure: One or more of the following individualized dose reduction techniques were utilized for this examination: 1. Automated exposure control 2. Adjustment of the mA and/or kV according to patient size 3. Use of iterative reconstruction technique. Comparison: None Findings: Lower chest: No consolidation or pleural effusion. Abdomen and pelvis: The liver, spleen, and adrenal glands are unremarkable. Prior cholecystectomy. Mild inflammatory changes surrounding the pancreatic head. Pancreatic head calcifications. Fullness of the pancreatic head. No peripancreatic fluid collections. Mild pancreatic ductal dilatation within the region the pancreatic head and neck. Reactive duodenal wall thickening. Extensive vascular calcifications. No renal calculus. No hydronephrosis. Mild bilateral renal atrophy. Decompressed urinary bladder with wall thickening. Mild colonic diverticulosis. Normal appendix. Mild stool filled rectum. No evidence of bowel obstruction. Postoperative changes proximal small bowel. Small peripancreatic and retroperitoneal lymph nodes. No ascites. Small bilateral fat- containing inguinal hernias. Bones: Chronic left posterior rib fractures. Small lucent lesions within the i liac bones greatest on the left measures 1.3 cm. Impression: 1. Acute on chronic pancreatitis. 2. Fullness of the pancreatic head. Recommend follow-up CT or MRI with contrast to evaluate for underlying pancreatic mass. Comparison with prior imaging stud ies would also be of benefit. 3. Urinary bladder wall thickening likely due to nondistention and chronic outlet obstruction. Correlate for cystitis. GRAHAM ROSEN MD Jul 31, 2021 15:09
--- NOTE | 2021-07-31 15:18 | PDOC2 ---
CONSULT Date of Consult Date of Consult DATE: 07/31/21 TIME: 15:13 Reason for Consult Reason for Consult: Acute on chronic pancreatitis History of Present Illness Reason for Visit: This is a 60-year-old patient who is on dialysis for end-stage kidney disease who presents with abdominal pain and elevated lipase. CT imaging reveals acute inflammation of the pancreas but also chronic pancreatitis in the form of calcifications. He relates that he was just in [facility] with a recurrence of pancreatitis about 3 weeks ago and actually underwent an endoscopic procedure to deal with "stones" in his pancreas or biliary system he is not sure. However they had trouble with IV access and were not able to complete the exam just last week. Historically he has had a cholecystectomy and he states that 10 years ago when that was done he had had multiple episodes of pancreatitis related to his gallbladder but has not had any documented recurrent pancreatitis until recently. He denies alcohol use at all. His lipid profile is been normal and was normal on this admission. 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.) GI: Other (Chronic pancreatitis) Renal/: Chronic renal failure Past Surgical History Past Surgical History: Cholecystectomy, Other (Multiple amputations of extremities or fingers.) Social History No ALCOHOL: none Drugs: None, Ecstasy Lives: Friends Current Problem List Problem List Problems Medical Problems: (1) Headache Status: Acute (2) Pancreatitis Status: Acute Current Medications Current Medications Current Medications Fentanyl Citrate (Fentanyl 2ml Vial) 75 mcg 1X ONCE IVP Last administered on 07/30/21at 15:18; Start 07/30/21 at 14:30; Stop 07/30/21 at 14:31; Status DC Metoclopramide HCl (Reglan Vial) 10 mg 1X ONCE IVP Last administered on 07/30/21at 15:20; Start 07/30/21 at 15:15; Stop 07/30/21 at 15:20; Status DC Hydromorphone HCl (Dilaudid) 1 mg 1X ONCE IVP Last administered on 07/30/21at 16:40; Start 07/30/21 at 16:15; Stop 07/30/21 at 16:16; Status DC Ondansetron HCl (Zofran) 4 mg 1X ONCE IVP Last administered on 07/30/21at 16:40; Start 07/30/21 at 16:15; Stop 07/30/21 at 16:16; Status DC Ondansetron HCl (Zofran) 4 mg PRN Q8HRS PRN IVP NAUSEA/VOMITING; Start 07/30/21 at 16:15; Stop 07/31/21 at 16:14 Fentanyl Citrate (Fentanyl 2ml Vial) 50 mcg PRN Q2HR PRN IVP PAIN; Start 07/30/21 at 16:15; Stop 07/31/21 at 16:14 Acetaminophen (Tylenol) 650 mg PRN Q4HRS PRN PO FEVER > 100.3'F; Start 07/30/21 at 16:15; Stop 07/31/21 at 16:14 Sodium Chloride 1,000 ml @ 100 mls/hr 1X ONCE IV Last administered on 07/30/21at 19:00; Start 07/30/21 at 17:00; Stop 07/31/21 at 02:59; Status DC Hydromorphone HCl (Dilaudid) 2 mg PRN Q4HRS PRN IVP PAIN Last administered on 07/31/21at 09:28; Start 07/30/21 at 18:00 Ondansetron HCl (Zofran) 4 mg PRN Q6HRS PRN IVP NAUSEA/VOMITING; Start 07/30/21 at 18:15 Calcium Carbonate/ Glycine (Tums) 500 mg PRN Q3HRS PRN PO UPSET STOMACH; Start 07/30/21 at 18:15 Acetaminophen (Tylenol) 650 mg PRN Q6HRS PRN PO Headaches, Temp > 101.5F; Start 07/30/21 at 18:15 Heparin Sodium (Porcine) (Heparin Sodium) 5,000 unit Q8HRS SQ Last administered on 07/31/21at 13:50; Start 07/30/21 at 22:00 Diphenhydramine HCl (Benadryl) 25 mg PRN QHS PRN IVP INSOMNIA; Start 07/30/21 at 18:15 Hydralazine HCl (Apresoline Inj) 10 mg PRN Q4HRS PRN IVP ELEVATED BP, SEE COMMENTS; Start 07/30/21 at 18:15 Insulin Human Lispro (HumaLOG) 0-9 UNITS TIDWMEALS SQ ; Start 07/31/21 at 08:00 Dextrose (Dextrose 50%-Water Syringe) 12.5 gm PRN Q15MIN PRN IV SEE COMMENTS; Start 07/30/21 at 18:15 Sodium Chloride 1,000 ml @ 100 mls/hr 1X ONCE IV Last administered on 07/31/21at 09:28; Start 07/31/21 at 08:30; Stop 07/31/21 at 18:29 Diphenhydramine HCl (Benadryl) 25 mg PRN Q6HRS PRN IVP ITCHING Last administered on 07/31/21at 09:34; Start 07/31/21 at 09:00 Active Scripts Active Percocet 5-325 Mg Tablet (Oxycodone/Acetaminophen) 1 Each Tablet 1-2 Tab PO Q4- 6HRS 3 Days Cephalexin 500 Mg Capsule 1 Cap PO QID 10 Days Reported Glipizide Er (Glipizide) 2.5 Mg Tab.er.24 2.5 Mg PO Clonidine Hcl 0.2 Mg Tablet Amlodipine Besylate 10 Mg Tablet 10 Mg PO Eda Chewable (Aspirin) 81 Mg Tab.chew 81 Mg PO Lasix (Furosemide) 20 Mg Tablet 20 Mg PO Lyrica (Pregabalin) 75 Mg Capsule 75 Mg PO Hydralazine Hcl 50 Mg Tablet 50 Mg PO Allergies Allergies: Coded Allergies: lisinopril (Verified Allergy, Intermediate, 10/29/17) morphine (Verified Allergy, Intermediate, 10/29/17) Physical Exam General: Alert, Oriented X3 HEENT: Atraumatic Lungs: Clear to auscultation Heart: Regular rate, Normal S1, Normal S2 Abdomen: Normal bowel sounds, Soft, No hepatosplenomegaly, Other (Only mildly tender in the periumbilical region) Extremities: Other (Numerous amputations of fingers and lower extremities) Neuro: Normal speech Psych/Mental Status: Mental status NL Vitals VITALS Vital Signs Date Time Temp Pulse Resp B/P (MAP) Pulse Ox O2 Delivery O2 Flow Rate FiO2 07/31/21 11:00 97.9 88 18 155/88 (110) 95 Room Air 97.9 Labs Labs Laboratory Tests Test 07/30/21 14:25 07/30/21 20:18 07/31/21 04:00 07/31/21 04:30 White Blood Count 7.5 x10^3/uL (4.0-11.0) 4.0 x10^3/uL (4.0-11.0) Red Blood Count 3.18 x10^6/uL (4.30-5.70) 2.85 x10^6/uL (4.30-5.70) Hemoglobin 9.4 g/dL (13.0-17.5) 8.5 g/dL (13.0-17.5) Hematocrit 27.5 % (39.0-53.0) 25.2 % (39.0-53.0) Mean Corpuscular Volume 87 fL (79-100) 88 fL (79-100) Mean Corpuscular Hemoglobin 30 pg (25-35) 30 pg (25-35) Mean Corpuscular Hemoglobin Concent 34 g/dL (31-37) 34 g/dL (31-37) Red Cell Distribution Width 16.5 % (11.5-14.5) 16.8 % (11.5-14.5) Platelet Count 74 x10^3/uL (140-400) 64 x10^3/uL (140-400) Neutrophils (%) (Auto) 83 % (31-73) 74 % (31-73) Lymphocytes (%) (Auto) 8 % (24-48) 14 % (24-48) Monocytes (%) (Auto) 7 % (0-9) 9 % (0-9) Eosinophils (%) (Auto) 1 % (0-3) 2 % (0-3) Basophils (%) (Auto) 0 % (0-3) 1 % (0-3) Neutrophils # (Auto) 6.2 x10^3/uL (1.8-7.7) 2.9 x10^3/uL (1.8-7.7) Lymphocytes # (Auto) 0.6 x10^3/uL (1.0-4.8) 0.6 x10^3/uL (1.0-4.8) Monocytes # (Auto) 0.5 x10^3/uL (0.0-1.1) 0.4 x10^3/uL (0.0-1.1) Eosinophils # (Auto) 0.1 x10^3/uL (0.0-0.7) 0.1 x10^3/uL (0.0-0.7) Basophils # (Auto) 0.0 x10^3/uL (0.0-0.2) 0.0 x10^3/uL (0.0-0.2) Sodium Level 136 mmol/L (136-145) 138 mmol/L (136-145) Potassium Level 3.2 mmol/L (3.5-5.1) 3.0 mmol/L (3.5-5.1) Chloride Level 97 mmol/L (98-107) 99 mmol/L (98-107) Carbon Dioxide Level 32 mmol/L (21-32) 31 mmol/L (21-32) Anion Gap 7 (6-14) 8 (6-14) Blood Urea Nitrogen 13 mg/dL (8-26) 20 mg/dL (8-26) Creatinine 3.4 mg/dL (0.7-1.3) 4.5 mg/dL (0.7-1.3) Estimated GFR (Cockcroft-Gault) 22.6 16.4 BUN/Creatinine Ratio 4 (6-20) Glucose Level 104 mg/dL (70-99) 85 mg/dL (70-99) Calcium Level 9.4 mg/dL (8.5-10.1) 8.6 mg/dL (8.5-10.1) Total Bilirubin 0.7 mg/dL (0.2-1.0) Aspartate Amino Transf (AST/SGOT) 45 U/L (15-37) Alanine Aminotransferase (ALT/SGPT) 55 U/L (16-63) Alkaline Phosphatase 154 U/L (46-116) Total Protein 7.3 g/dL (6.4-8.2) Albumin 2.9 g/dL (3.4-5.0) Albumin/Globulin Ratio 0.7 (1.0-1.7) Triglycerides Level 71 mg/dL (0-150) Lipase 2215 U/L (73-393) 1465 U/L (73-393) Glucose (Fingerstick) 99 mg/dL (70-99) Test 07/31/21 07:22 07/31/21 11:50 Glucose (Fingerstick) 87 mg/dL (70-99) 87 mg/dL (70-99) Laboratory Tests Test 07/30/21 20:18 07/31/21 04:00 07/31/21 04:30 07/31/21 07:22 Glucose (Fingerstick) 99 mg/dL (70-99) 87 mg/dL (70-99) Lipase 1465 U/L (73-393) White Blood Count 4.0 x10^3/uL (4.0-11.0) Red Blood Count 2.85 x10^6/uL (4.30-5.70) Hemoglobin 8.5 g/dL (13.0-17.5) Hematocrit 25.2 % (39.0-53.0) Mean Corpuscular Volume 88 fL (79-100) Mean Corpuscular Hemoglobin 30 pg (25-35) Mean Corpuscular Hemoglobin Concent 34 g/dL (31-37) Red Cell Distribution Width 16.8 % (11.5-14.5) Platelet Count 64 x10^3/uL (140-400) Neutrophils (%) (Auto) 74 % (31-73) Lymphocytes (%) (Auto) 14 % (24-48) Monocytes (%) (Auto) 9 % (0-9) Eosinophils (%) (Auto) 2 % (0-3) Basophils (%) (Auto) 1 % (0-3) Neutrophils # (Auto) 2.9 x10^3/uL (1.8-7.7) Lymphocytes # (Auto) 0.6 x10^3/uL (1.0-4.8) Monocytes # (Auto) 0.4 x10^3/uL (0.0-1.1) Eosinophils # (Auto) 0.1 x10^3/uL (0.0-0.7) Basophils # (Auto) 0.0 x10^3/uL (0.0-0.2) Sodium Level 138 mmol/L (136-145) Potassium Level 3.0 mmol/L (3.5-5.1) Chloride Level 99 mmol/L (98-107) Carbon Dioxide Level 31 mmol/L (21-32) Anion Gap 8 (6-14) Blood Urea Nitrogen 20 mg/dL (8-26) Creatinine 4.5 mg/dL (0.7-1.3) Estimated GFR (Cockcroft-Gault) 16.4 Glucose Level 85 mg/dL (70-99) Calcium Level 8.6 mg/dL (8.5-10.1) Test 07/31/21 11:50 Glucose (Fingerstick) 87 mg/dL (70-99) Images Images Findings: Lower chest: No consolidation or pleural effusion. Abdomen and pelvis: The liver, spleen, and adrenal glands are unremarkable. Prior cholecystectomy. Mild inflammatory changes surrounding the pancreatic head. Pancreatic head calcifications. Fullness of the pancreatic head. No peripancreatic fluid collections. Mild pancreatic ductal dilatation within the region the pancreatic head and neck. Reactive duodenal wall thickening. Extensive vascular calcifications. No renal calculus. No hydronephrosis. Mild bilateral renal atrophy. Decompressed urinary bladder with wall thickening. Mild colonic diverticulosis. Normal appendix. Mild stool filled rectum. No evidence of bowel obstruction. Postoperative changes proximal small bowel. Small peripancreatic and retroperitoneal lymph nodes. No ascites. Small bilateral fat- containing inguinal hernias. Bones: Chronic left posterior rib fractures. Small lucent lesions within the iliac bones greatest on the left measures 1.3 cm. Impression: 1. Acute on chronic pancreatitis. 2. Fullness of the pancreatic head. Recommend follow-up CT or MRI with contrast to evaluate for underlying pancreatic mass. Comparison with prior imaging studies would also be of benefit. 3. Urinary bladder wall thickening likely due to nondistention and chronic outlet obstruction. Correlate for cystitis. Assessment/Plan Assessment/Plan Acute on chronic pancreatitis. He relates that he was just in [facility] where they had hospitalized him and then actually underwent a procedure last week. Apparently they had IV access problems and were unable to complete the evaluation and treatment. He was told there were some "stones" whether they were in the common bile duct or pancreatic duct is unclear. The CT scan reveals chronic pancreatitis with calcifications in the pancreas with some mild dilation of the pancreatic duct. However whether those stones that were discussed are in the pancreatic duct are unclear. Certainly intervention at [facility] later as an outpatient would be most appropriate to hopefully remedy any anato mical process which might be triggering recurrent pancreatitis. He adamantly denies alcohol use. His lipid profile was normal. Plan: Consider a clear liquid diet tomorrow if his lipase elevation is improving and is clinically improved. Once he is tolerating liquids, he can likely be discharged to follow-up at [facility]. Based on his history of recent interaction at and the possibility that he may have pancreatic duct stones, referral back to them for repeat intervention would be most appropriate. Apparently that is scheduled in 3 weeks. I would not recommend any of those procedures here during this hospital ization. CASSANDRA LYNCH MD Jul 31, 2021 15:18
--- NOTE | 2021-07-31 18:03 | NUR ---
Pt's bs 63, Dr. Danielle notified, telephone orders received.
[2021-07-31] MEDS: IV DEXTROSE 5% - 0.9 % NACL 1,000 ML IV SCH (18:18)
[2021-07-31 19:00] VITALS: BP 165/79
[2021-07-31 23:00] VITALS: BP 179/86
[2021-08-01 03:00] VITALS: BP 176/82
[2021-08-01] MEDS: diphenhydrAMINE 50 MG/ML VIAL IVP PRN ×2 (06:24→13:05)
[2021-08-01] MEDS: HEPARIN for SUB-Q USE 5,000 UNIT/ML VIAL. SQ SCH ×3 (06:29→21:58)
[2021-08-01 07:15] VITALS: BP 163/79
[2021-08-01] MEDS: INSULIN LISPRO 300 UNITS/3 ML VIAL. SQ SCH ×3 (08:00→16:22)
[2021-08-01 08:11] LABS: BASO % 1 % (0-3); EOS # 0.1 x10^3/uL (0.0-0.7); EOS % 3 % (0-3); HEMATOCRIT 27.7 % (39.0-53.0); HEMOGLOBIN 9.4 g/dL (13.0-17.5); LYMPH # 0.4 x10^3/uL (1.0-4.8); LYMPH % 15 % (24-48); MEAN CORPUSCULAR HEMOGLOBIN 30 pg (25-35); MEAN CORPUSCULAR HGB CONC 34 g/dL (31-37); MEAN CORPUSCULAR VOLUME 89 fL (79-100); MONO # 0.3 x10^3/uL (0.0-1.1); MONO % 9 % (0-9); NEUT # 2.1 x10^3/uL (1.8-7.7); NEUT % 72 % (31-73); PLATELET COUNT 72 x10^3/uL (140-400); RED BLOOD COUNT 3.11 x10^6/uL (4.30-5.70); RED CELL DISTRIBUTION WIDTH 16.6 % (11.5-14.5)
--- NOTE | 2021-08-01 09:30 | PDOC ---
DATE OF SERVICE DATE: 08/01/21 TIME: 09:29 SUBJECTIVE ROS States feeling better. No Nand Vomiting OBJECTIVE Vital Signs Vital Signs Date Time Temp Pulse Resp B/P (MAP) Pulse Ox O2 Delivery O2 Flow Rate FiO2 08/01/21 07:15 98.0 88 20 163/79 (107) 95 Room Air 98.0 I & 0 Intake and Output 08/01/21 07:00 Intake Total 480 ml Balance 480 ml Intake Oral 480 ml PHYSICAL EXAM Physical Exam General: A No acute distress HEENT: PERRLA, EOMI, OM moist Lungs: Clear to auscultation, Non labored Heart: RRR, no murmurs Cardiovascular: S1, S2 Abdomen: Epigastric tenderness. Abdominal distention. Normal bowel sounds, Soft. Extremities: Left BKA. No clubbing, No cyanosis Skin: No rashes, No significant lesion Neuro: Normal speech, Normal tone, Sensation intact Psych/Mental Status: Mental status NL, Mood NL No persaud, No CVA or SP tenderness DIAGNOSIS/ASSESSMENT Assessment & Plan ESRD on HD TTS, under Dr. Berkowitz 's care last Dialysis was on Sunday, Currently No indication for dialysis Acute on chronic pancreatitis- CT findings of fullness of pancreatic head,GI following Anemia- Monitor HTN- Home antihypertensives DM per primary Chronic Bladder Outlet obstruction on CT COMMENT/RELEVANT DATA Meds Current Medications Medications (Trade) Dose Ordered Sig/Steven Start Time Stop Time Status Last Admin Dose Admin Acetaminophen (Tylenol) 650 mg PRN Q6HRS PRN 07/30/21 18:15 Calcium Carbonate/ Glycine (Tums) 500 mg PRN Q3HRS PRN 07/30/21 18:15 Dextrose (Dextrose 50%-Water Syringe) 12.5 gm PRN Q15MIN PRN 07/30/21 18:15 Dextrose/Sodium Chloride 1,000 ml @ 70 mls/hr [id number] 07/31/21 18:00 07/31/21 18:18 70 MLS/HR Diphenhydramine HCl (Benadryl) 25 mg PRN Q6HRS PRN 07/31/21 09:00 08/01/21 06:24 25 MG Fentanyl Citrate (Fentanyl 2ml Vial) 50 mcg PRN Q2HR PRN 07/30/21 16:15 07/31/21 16:14 DC Heparin Sodium (Porcine) (Heparin Sodium) 5,000 unit Q8HRS 07/30/21 22:00 08/01/21 06:29 5,000 UNIT Hydralazine HCl (Apresoline Inj) 10 mg PRN Q4HRS PRN 07/30/21 18:15 Hydromorphone HCl (Dilaudid) 2 mg PRN Q4HRS PRN 07/30/21 18:00 07/31/21 23:10 2 MG Insulin Human Lispro (HumaLOG) 0-9 UNITS TIDWMEALS 07/31/21 08:00 Metoclopramide HCl (Reglan Vial) 10 mg 1X ONCE 07/30/21 15:15 07/30/21 15:20 DC 07/30/21 15:20 10 MG Ondansetron HCl (Zofran) 4 mg PRN Q6HRS PRN 07/30/21 18:15 Sodium Chloride 1,000 ml @ 100 mls/hr 1X ONCE 07/31/21 08:30 07/31/21 18:29 DC 07/31/21 09:28 100 MLS/HR Lab Laboratory Tests Test 07/31/21 11:50 07/31/21 17:29 07/31/21 20:16 07/31/21 23:26 Glucose (Fingerstick) 87 mg/dL (70-99) 61 mg/dL (70-99) 67 mg/dL (70-99) 76 mg/dL (70-99) Test 08/01/21 07:00 08/01/21 08:58 White Blood Count 3.0 x10^3/uL (4.0-11.0) Red Blood Count 3.11 x10^6/uL (4.30-5.70) Hemoglobin 9.4 g/dL (13.0-17.5) Hematocrit 27.7 % (39.0-53.0) Mean Corpuscular Volume 89 fL (79-100) Mean Corpuscular Hemoglobin 30 pg (25-35) Mean Corpuscular Hemoglobin Concent 34 g/dL (31-37) Red Cell Distribution Width 16.6 % (11.5-14.5) Platelet Count 72 x10^3/uL (140-400) Neutrophils (%) (Auto) 72 % (31-73) Lymphocytes (%) (Auto) 15 % (24-48) Monocytes (%) (Auto) 9 % (0-9) Eosinophils (%) (Auto) 3 % (0-3) Basophils (%) (Auto) 1 % (0-3) Neutrophils # (Auto) 2.1 x10^3/uL (1.8-7.7) Lymphocytes # (Auto) 0.4 x10^3/uL (1.0-4.8) Monocytes # (Auto) 0.3 x10^3/uL (0.0-1.1) Eosinophils # (Auto) 0.1 x10^3/uL (0.0-0.7) Basophils # (Auto) 0.0 x10^3/uL (0.0-0.2) Lipase 634 U/L (73-393) Glucose (Fingerstick) 80 mg/dL (70-99) Results All relevant outside records, renal labs, imaging studies, telemetry/EKG's were reviewed. Justicifation of Admission Dx: Justifications for Admission: Justification of Admission Dx: N/A GRAHAM ROSEN MD Aug 01, 2021 09:30
--- NOTE | 2021-08-01 10:49 | NUR ---
SW following. 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 GI and Nephrology following. Pt does dialysis T, , Sa. RN advised no SW needs at this time. SW will continue to follow.
[2021-08-01 11:00] VITALS: BP 177/81
[2021-08-01] MEDS: IV DEXTROSE 5% - 0.9 % NACL 1,000 ML IV SCH ×2 (11:09→22:36)
--- NOTE | 2021-08-01 11:23 | PDOC ---
Date of Service: DATE: 08/01/21 TIME: 11:18 Subjective: Subjective: Maybe a little less abdominal pain. Not interested in advancing diet yet. No flatus. Dilaudid caused itching. Objective: Objective: Not COVID tested, vaccination reported in other notes. Vital Signs: Vital Signs Date Time Temp Pulse Resp B/P (MAP) Pulse Ox O2 Delivery O2 Flow Rate FiO2 08/01/21 07:25 Room Air 08/01/21 07:15 98.0 88 20 163/79 (107) 95 98.0 Labs: Laboratory Tests Test 07/31/21 11:50 07/31/21 17:29 07/31/21 20:16 07/31/21 23:26 Glucose (Fingerstick) 87 mg/dL 61 mg/dL 67 mg/dL 76 mg/dL Test 08/01/21 07:00 08/01/21 08:58 White Blood Count 3.0 x10^3/uL Red Blood Count 3.11 x10^6/uL Hemoglobin 9.4 g/dL Hematocrit 27.7 % Mean Corpuscular Volume 89 fL Mean Corpuscular Hemoglobin 30 pg Mean Corpuscular Hemoglobin Concent 34 g/dL Red Cell Distribution Width 16.6 % Platelet Count 72 x10^3/uL Neutrophils (%) (Auto) 72 % Lymphocytes (%) (Auto) 15 % Monocytes (%) (Auto) 9 % Eosinophils (%) (Auto) 3 % Basophils (%) (Auto) 1 % Neutrophils # (Auto) 2.1 x10^3/uL Lymphocytes # (Auto) 0.4 x10^3/uL Monocytes # (Auto) 0.3 x10^3/uL Eosinophils # (Auto) 0.1 x10^3/uL Basophils # (Auto) 0.0 x10^3/uL Lipase 634 U/L Glucose (Fingerstick) 80 mg/dL PE: GEN: NAD, was sleeping LUNGS: clear anteriorly HEART: RRR ABD: quiet, soft, epigastric tenderness EXTREMITY: many amputations NEURO/PSYCH: A & O 3 A/P: Acute on chronic pancreatitis s/p cholecystectomy w/ ongoing workup @ ESRD on HD Pancytopenia -- Offered trial of clear liquid diet - he declined. Since I have seen, he has clear liquid diet ordered. Observe on this. Pain control per primary. 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 Follow-up @ as planned. Justicifation of Admission Dx: Justifications for Admission: Justification of Admission Dx: Yes MERA CUMMINGS Aug 01, 2021 11:23
--- NOTE | 2021-08-01 12:30 | PDOC ---
[facility] PROGRESS NOTE Date of Service DOS: DATE: 08/01/21 TIME: 12:28 Chief Complaint Chief Complaint Acute on chronic pancreatitis ESRD on HD Normocytic anemia Moderate malnutrition Plan: Provide judicious IV fluids given history of ESRD. Difficult situation that may require IV fluids followed by ultrafiltration for removal of possible fluid overload. Consultation placed to nephrology Consultation placed to GI Given CT findings of fullness of pancreatic head, may be necessary to repeat CT after IV fluids or obtain MRI to further evaluate for underlying pancreatic mass as there are no prior images to compare. FEN - NPO for now PPX - Heparin FULL CODE Dispo - inpatient for above Patient and his brother (Hunter Vargas) as surrogate decision-maker History of Present Illness History of Present Illness Patient is a 60-year-old male with past medical history recurrent pancreatitis, ESRD on HD Sunday//Sunday, who presents to the ED with complaints of worsening abdominal pain over the past 5 days. Reports associated nausea, vomiting, abdominal distention, and headache. He was able to obtain his regular scheduled hemodialysis today, but presents to the ED due to worsening pain. Labs on admission showed hemoglobin 9.4, hematocrit 27.5, potassium 3.2, creatinine 3.4, AST 45, ALT 55, alk phos 154, albumin 2.9, lipase 2215, triglycerides 71. Admits to history of pancreatitis with cholecystectomy. He has been seen by a retail and restaurant associate in the past and told that his pancreatitis was probably due to spicy foods. He denies history of tobacco use, alcohol use, drug use 07/31/2021: Afebrile, breathing on room air. Lipase improving. Epigastric pain improving. Complains of some itching; will order prn benadryl. Hypokalemia noted today, (K-3.0). Will provide additional 1 L normal saline, and be very cautious regarding volume overload. We will try to continue to coordinate IV fluids with HD/ultrafiltration. Appreciate nephrology and GI recommendations in the management of this patient. 08/01 Patient evaluated at bedside he was resting in bed when I saw him. Says his abdominal pain has improved somewhat but is definitely still present. He says he is not ready to try diet yet but will have clear liquid diet ordered and available for him in case he would like to. Otherwise continue current plan. GI following. Nephro following for dialysis. Plan of care discussed with bedside RN. Vitals/I&O Vitals/I&O: Vital Signs Date Time Temp Pulse Resp B/P (MAP) Pulse Ox O2 Delivery O2 Flow Rate FiO2 08/01/21 11:00 98.8 89 16 177/81 (113) 99 Room Air 98.8 I & O 07/31/21 07/31/21 08/01/21 15:00 23:00 07:00 Intake Total 480 ml 0 ml Balance 480 ml 0 ml Physical Exam General: Alert, Oriented X3 Heart: Regular rate, Normal S1, Normal S2 Lungs: Clear Abdomen: Normal bowel sounds, Soft, No hepatosplenomegaly, Other (Only mildly tender in the periumbilical region) Extremities: No edema, Normal pulses, Other (Numerous amputations of fingers and lower extremities) Skin: No significant lesion Labs Labs: Laboratory Tests Test 07/31/21 17:29 07/31/21 20:16 07/31/21 23:26 08/01/21 07:00 Glucose (Fingerstick) 61 mg/dL (70-99) 67 mg/dL (70-99) 76 mg/dL (70-99) White Blood Count 3.0 x10^3/uL (4.0-11.0) Red Blood Count 3.11 x10^6/uL (4.30-5.70) Hemoglobin 9.4 g/dL (13.0-17.5) Hematocrit 27.7 % (39.0-53.0) Mean Corpuscular Volume 89 fL (79-100) Mean Corpuscular Hemoglobin 30 pg (25-35) Mean Corpuscular Hemoglobin Concent 34 g/dL (31-37) Red Cell Distribution Width 16.6 % (11.5-14.5) Platelet Count 72 x10^3/uL (140-400) Neutrophils (%) (Auto) 72 % (31-73) Lymphocytes (%) (Auto) 15 % (24-48) Monocytes (%) (Auto) 9 % (0-9) Eosinophils (%) (Auto) 3 % (0-3) Basophils (%) (Auto) 1 % (0-3) Neutrophils # (Auto) 2.1 x10^3/uL (1.8-7.7) Lymphocytes # (Auto) 0.4 x10^3/uL (1.0-4.8) Monocytes # (Auto) 0.3 x10^3/uL (0.0-1.1) Eosinophils # (Auto) 0.1 x10^3/uL (0.0-0.7) Basophils # (Auto) 0.0 x10^3/uL (0.0-0.2) Lipase 634 U/L (73-393) Test 08/01/21 08:58 08/01/21 11:32 Glucose (Fingerstick) 80 mg/dL (70-99) 87 mg/dL (70-99) Assessment and Plan Assessmemt and Plan Problems Medical Problems: (1) Headache Status: Acute (2) Pancreatitis Status: Acute Comment Review of Relevant I have reviewed the following items giselle (where applicable) has been applied. Medications: Current Medications Medications (Trade) Dose Ordered Sig/Steven Route PRN Reason Start Time Stop Time Status Last Admin Dose Admin Dextrose/Sodium Chloride 1,000 ml @ 70 mls/hr [id number] IV 07/31/21 18:00 08/01/21 11:09 Justifications for Admission General Conditions Other justification for admit: Acute on chronic pancreatitis Other Justification SHAWN DIXON MD Aug 01, 2021 12:30
[2021-08-01] MEDS: PANTOPRAZOLE 40 MG TABLET.DR. PO SCH (13:05)
[2021-08-01] MEDS ORDERED: OXYC10TA PO (13:43)
[2021-08-01] MEDS ORDERED: CYCL10TA2 PO (13:43)
[2021-08-01] MEDS ORDERED: PANT40TA77 PO (13:43)
[2021-08-01] MEDS ORDERED: INSU100I17 SQ (13:43)
[2021-08-01] MEDS ORDERED: HYDR25TA PO (13:43)
[2021-08-01] MEDS ORDERED: SEVE800T9 PO (13:43)
[2021-08-01] MEDS ORDERED: GABA-585 PO (13:43)
[2021-08-01] MEDS ORDERED: PREG150C PO (13:43)
[2021-08-01] MEDS ORDERED: INSU100I27 SQ (13:43)
[2021-08-01] MEDS ORDERED: fentaNYL PF VIAL 100 MCG/2 ML VIAL IVP PRN (13:45)
[2021-08-01 15:00] VITALS: BP 191/91
[2021-08-01 19:00] VITALS: BP 165/71
[2021-08-01 23:00] VITALS: BP 153/70
[2021-08-02 03:00] VITALS: BP 147/69
[2021-08-02] MEDS: HEPARIN for SUB-Q USE 5,000 UNIT/ML VIAL. SQ SCH ×3 (06:13→22:20)
[2021-08-02 07:00] VITALS: BP 156/75
[2021-08-02] MEDS ORDERED: IV NORMAL SALINE 1000ML BAG 1,000 ML IV PRN ×2 (07:30)
[2021-08-02] MEDS ORDERED: ALBUMIN HUMAN 25% 200 ML IV PRN (07:30)
[2021-08-02] MEDS ORDERED: DIALYSIS PATIENT. MC PRN ×2 (07:30)
[2021-08-02 07:36] LABS: BASO % 1 % (0-3); EOS # 0.1 x10^3/uL (0.0-0.7); EOS % 2 % (0-3); HEMOGLOBIN 8.2 g/dL (13.0-17.5); LYMPH # 0.6 x10^3/uL (1.0-4.8); LYMPH % 22 % (24-48); MEAN CORPUSCULAR HEMOGLOBIN 30 pg (25-35); MEAN CORPUSCULAR HGB CONC 34 g/dL (31-37); MEAN CORPUSCULAR VOLUME 88 fL (79-100); MONO # 0.3 x10^3/uL (0.0-1.1); MONO % 12 % (0-9); NEUT # 1.6 x10^3/uL (1.8-7.7); NEUT % 63 % (31-73); PLATELET COUNT 79 x10^3/uL (140-400); RED BLOOD COUNT 2.72 x10^6/uL (4.30-5.70); RED CELL DISTRIBUTION WIDTH 16.7 % (11.5-14.5); WHITE BLOOD COUNT 2.5 x10^3/uL (4.0-11.0)
[2021-08-02] MEDS: PANTOPRAZOLE 40 MG TABLET.DR. PO SCH (07:51)
[2021-08-02] MEDS: INSULIN LISPRO 300 UNITS/3 ML VIAL. SQ SCH ×3 (08:00→16:54)
[2021-08-02 08:07] LABS: CALCIUM 8.7 mg/dL (8.5-10.1); CREATININE 8.8 mg/dL (0.7-1.3); GFR 7.5; POTASSIUM 3.4 mmol/L (3.5-5.1)
[2021-08-02 08:11] LABS: ALBUMIN 2.4 g/dL (3.4-5.0); PHOSPHORUS 5.3 mg/dL (2.6-4.7)
--- NOTE | 2021-08-02 10:17 | PDOC ---
DATE OF SERVICE DATE: 08/02/21 TIME: 10:16 SUBJECTIVE ROS Seen during dialysis, No complaints OBJECTIVE Vital Signs Vital Signs Date Time Temp Pulse Resp B/P (MAP) Pulse Ox O2 Delivery O2 Flow Rate FiO2 08/02/21 07:30 Room Air 08/02/21 07:00 98.1 85 18 156/75 (102) 100 98.1 I & 0 Intake and Output 08/02/21 07:00 Intake Total 0 ml Balance 0 ml Intake Oral 0 ml PHYSICAL EXAM Physical Exam General: No acute distress HEENT: PERRLA, EOMI, OM moist Lungs: Clear to auscultation, Non labored Heart: RRR, no murmurs Cardiovascular: S1, S2 Abdomen: Epigastric tenderness. Abdominal distention. Normal bowel sounds, Soft. Extremities: Left BKA. No clubbing, No cyanosis Skin: No rashes, No significant lesion Neuro: Normal speech, Normal tone, Sensation intact Psych/Mental Status: Mental status NL, Mood NL No persaud, No CVA or SP tenderness DIAGNOSIS/ASSESSMENT Assessment & Plan ESRD on HD TTS, under Dr. Berkowitz 's care . Seen during dialysis , tolerating well. Continue as ordered. Andrew Espitia Acute on chronic pancreatitis- CT findings of fullness of pancreatic head,GI following Anemia- Monitor HTN- Home antihypertensives DM per primary Chronic Bladder Outlet obstruction on CT COMMENT/RELEVANT DATA Meds Current Medications Medications (Trade) Dose Ordered Sig/Steven Start Time Stop Time Status Last Admin Dose Admin Acetaminophen (Tylenol) 650 mg PRN Q6HRS PRN 07/30/21 18:15 Albumin Human 200 ml @ 200 mls/hr 1X PRN PRN 08/02/21 07:30 08/02/21 13:29 Calcium Carbonate/ Glycine (Tums) 500 mg PRN Q3HRS PRN 07/30/21 18:15 Dextrose (Dextrose 50%-Water Syringe) 12.5 gm PRN Q15MIN PRN 07/30/21 18:15 Dextrose/Sodium Chloride 1,000 ml @ 70 mls/hr [id number] 07/31/21 18:00 08/01/21 11:09 70 MLS/HR Diphenhydramine HCl (Benadryl) 25 mg PRN Q6HRS PRN 07/31/21 09:00 08/01/21 13:05 25 MG Fentanyl Citrate (Fentanyl 2ml Vial) 50 mcg PRN Q2HR PRN 08/01/21 13:45 08/01/21 14:51 50 MCG Heparin Sodium (Porcine) (Heparin Sodium) 5,000 unit Q8HRS 07/30/21 22:00 08/02/21 06:13 5,000 UNIT Hydralazine HCl (Apresoline Inj) 10 mg PRN Q4HRS PRN 07/30/21 18:15 Hydromorphone HCl (Dilaudid) 2 mg PRN Q4HRS PRN 07/30/21 18:00 08/01/21 13:47 DC 07/31/21 23:10 2 MG Info (PHARMACY MONITORING -- do not chart) 1 each PRN DAILY PRN 08/02/21 07:30 Insulin Human Lispro (HumaLOG) 0-9 UNITS TIDWMEALS 07/31/21 08:00 Metoclopramide HCl (Reglan Vial) 10 mg 1X ONCE 07/30/21 15:15 07/30/21 15:20 DC 07/30/21 15:20 10 MG Ondansetron HCl (Zofran) 4 mg PRN Q6HRS PRN 07/30/21 18:15 Pantoprazole Sodium (Protonix) 40 mg DAILYAC 08/01/21 12:00 08/02/21 07:51 40 MG Sodium Chloride 1,000 ml @ 400 mls/hr Q2H30M PRN 08/02/21 07:30 08/02/21 19:29 Lab Laboratory Tests Test 08/01/21 11:32 08/01/21 16:09 08/01/21 20:50 08/02/21 06:50 Glucose (Fingerstick) 87 mg/dL (70-99) 95 mg/dL (70-99) 98 mg/dL (70-99) White Blood Count 2.5 x10^3/uL (4.0-11.0) Red Blood Count 2.72 x10^6/uL (4.30-5.70) Hemoglobin 8.2 g/dL (13.0-17.5) Hematocrit 24.0 % (39.0-53.0) Mean Corpuscular Volume 88 fL (79-100) Mean Corpuscular Hemoglobin 30 pg (25-35) Mean Corpuscular Hemoglobin Concent 34 g/dL (31-37) Red Cell Distribution Width 16.7 % (11.5-14.5) Platelet Count 79 x10^3/uL (140-400) Neutrophils (%) (Auto) 63 % (31-73) Lymphocytes (%) (Auto) 22 % (24-48) Monocytes (%) (Auto) 12 % (0-9) Eosinophils (%) (Auto) 2 % (0-3) Basophils (%) (Auto) 1 % (0-3) Neutrophils # (Auto) 1.6 x10^3/uL (1.8-7.7) Lymphocytes # (Auto) 0.6 x10^3/uL (1.0-4.8) Monocytes # (Auto) 0.3 x10^3/uL (0.0-1.1) Eosinophils # (Auto) 0.1 x10^3/uL (0.0-0.7) Basophils # (Auto) 0.0 x10^3/uL (0.0-0.2) Sodium Level 143 mmol/L (136-145) Potassium Level 3.4 mmol/L (3.5-5.1) Chloride Level 103 mmol/L (98-107) Carbon Dioxide Level 27 mmol/L (21-32) Anion Gap 13 (6-14) Blood Urea Nitrogen 39 mg/dL (8-26) Creatinine 8.8 mg/dL (0.7-1.3) Estimated GFR (Cockcroft-Gault) 7.5 Glucose Level 80 mg/dL (70-99) Calcium Level 8.7 mg/dL (8.5-10.1) Phosphorus Level 5.3 mg/dL (2.6-4.7) Albumin 2.4 g/dL (3.4-5.0) Lipase 389 U/L (73-393) Hepatitis B Surface Antigen Nonreactive (Nonreactive) Results All relevant outside records, renal labs, imaging studies, telemetry/EKG's were reviewed. Justicifation of Admission Dx: Justifications for Admission: Justification of Admission Dx: N/A GRAHAM ROSEN MD Aug 02, 2021 10:17
--- NOTE | 2021-08-02 10:55 | PDOC ---
Date of Service: DATE: 08/02/21 TIME: 10:53 Objective: Objective: D/w nurse - abd pain better (from 06/21 to 04/21), tolerating clears. Attempted to see in HD - had curtain drawn, was on bedpan. Vital Signs: Vital Signs Date Time Temp Pulse Resp B/P (MAP) Pulse Ox O2 Delivery O2 Flow Rate FiO2 08/02/21 07:30 Room Air 08/02/21 07:00 98.1 85 18 156/75 (102) 100 98.1 Labs: Laboratory Tests Test 08/01/21 11:32 08/01/21 16:09 08/01/21 20:50 08/02/21 06:50 Glucose (Fingerstick) 87 mg/dL 95 mg/dL 98 mg/dL White Blood Count 2.5 x10^3/uL Red Blood Count 2.72 x10^6/uL Hemoglobin 8.2 g/dL Hematocrit 24.0 % Mean Corpuscular Volume 88 fL Mean Corpuscular Hemoglobin 30 pg Mean Corpuscular Hemoglobin Concent 34 g/dL Red Cell Distribution Width 16.7 % Platelet Count 79 x10^3/uL Neutrophils (%) (Auto) 63 % Lymphocytes (%) (Auto) 22 % Monocytes (%) (Auto) 12 % Eosinophils (%) (Auto) 2 % Basophils (%) (Auto) 1 % Neutrophils # (Auto) 1.6 x10^3/uL Lymphocytes # (Auto) 0.6 x10^3/uL Monocytes # (Auto) 0.3 x10^3/uL Eosinophils # (Auto) 0.1 x10^3/uL Basophils # (Auto) 0.0 x10^3/uL Sodium Level 143 mmol/L Potassium Level 3.4 mmol/L Chloride Level 103 mmol/L Carbon Dioxide Level 27 mmol/L Anion Gap 13 Blood Urea Nitrogen 39 mg/dL Creatinine 8.8 mg/dL Estimated GFR (Cockcroft-Gault) 7.5 Glucose Level 80 mg/dL Calcium Level 8.7 mg/dL Phosphorus Level 5.3 mg/dL Albumin 2.4 g/dL Lipase 389 U/L Hepatitis B Surface Antigen Nonreactive Test 08/02/21 07:34 Glucose (Fingerstick) 80 mg/dL PE: GEN: dialyzing/on bedpan A/P: Acute on chronic pancreatitis - investigation ongoing @ Pancytopenia, ESRD on HD -- [facility]AT, follow-up at . Justicifation of Admission Dx: Justifications for Admission: Justification of Admission Dx: N/A MERA CUMMINGS Aug 02, 2021 10:55
[2021-08-02 12:09] VITALS: BP 192/94
[2021-08-02] MEDS: IV DEXTROSE 5% - 0.9 % NACL 1,000 ML IV SCH (12:54)
--- NOTE | 2021-08-02 12:57 | PDOC ---
[employer] PROGRESS NOTE Date of Service DOS: DATE: 08/02/21 TIME: 12:56 Chief Complaint Chief Complaint Acute on chronic pancreatitis ESRD on HD Normocytic anemia Moderate malnutrition Plan: Provide judicious IV fluids given history of ESRD. Difficult situation that may require IV fluids followed by ultrafiltration for removal of possible fluid overload. Consultation placed to nephrology Consultation placed to GI Given CT findings of fullness of pancreatic head, may be necessary to repeat CT after IV fluids or obtain MRI to further evaluate for underlying pancreatic mass as there are no prior images to compare. FEN - NPO for now PPX - Heparin FULL CODE Dispo - inpatient for above Patient and his brother (Hunter Vargas) as surrogate decision-maker History of Present Illness History of Present Illness Patient is a 60-year-old male with past medical history recurrent pancreatitis, ESRD on HD Sunday//Sunday, who presents to the ED with complaints of worsening abdominal pain over the past 5 days. Reports associated nausea, vomiting, abdominal distention, and headache. He was able to obtain his regular scheduled hemodialysis today, but presents to the ED due to worsening pain. Labs on admission showed hemoglobin 9.4, hematocrit 27.5, potassium 3.2, creatinine 3.4, AST 45, ALT 55, alk phos 154, albumin 2.9, lipase 2215, triglycerides 71. Admits to history of pancreatitis with cholecystectomy. He has been seen by a office nurse practitioner in the past and told that his pancreatitis was probably due to spicy foods. He denies history of tobacco use, alcohol use, drug use 07/31/2021: Afebrile, breathing on room air. Lipase improving. Epigastric pain improving. Complains of some itching; will order prn benadryl. Hypokalemia noted today, (K-3.0). Will provide additional 1 L normal saline, and be very cautious regarding volume overload. We will try to continue to coordinate IV fluids with HD/ultrafiltration. Appreciate nephrology and GI recommendations in the management of this patient. 08/01 Patient evaluated at bedside he was resting in bed when I saw him. Says his abdominal pain has improved somewhat but is definitely still present. He says he is not ready to try diet yet but will have clear liquid diet ordered and available for him in case he would like to. Otherwise continue current plan. GI following. Nephro following for dialysis. Plan of care discussed with bedside RN. 08/02 Patient evaluated at bedside after he returned from dialysis. Abdominal pain improving. Tolerating clear liquid diet will advance to [place] for dinner tonight. For some reason very hypertensive after dialysis today up to 190 systolic. Patient not having any symptoms however. We will plan to monitor pressures overnight after resuming some home meds today. Vitals/I&O Vitals/I&O: Vital Signs Date Time Temp Pulse Resp B/P (MAP) Pulse Ox O2 Delivery O2 Flow Rate FiO2 08/02/21 12:16 90 192/94 08/02/21 12:09 98.1 20 100 Room Air 98.1 I & O 08/01/21 08/01/21 08/02/21 15:00 23:00 07:00 Intake Total 0 ml 0 ml Balance 0 ml 0 ml Physical Exam General: Alert, Oriented X3 Heart: Regular rate, Normal S1, Normal S2 Lungs: Clear Abdomen: Normal bowel sounds, Soft, No hepatosplenomegaly, Other (Only mildly tender in the periumbilical region) Extremities: No edema, Normal pulses, Other (Numerous amputations of fingers and lower extremities) Skin: No significant lesion Labs Labs: Laboratory Tests Test 08/01/21 16:09 08/01/21 20:50 08/02/21 06:50 08/02/21 07:34 Glucose (Fingerstick) 95 mg/dL (70-99) 98 mg/dL (70-99) 80 mg/dL (70-99) White Blood Count 2.5 x10^3/uL (4.0-11.0) Red Blood Count 2.72 x10^6/uL (4.30-5.70) Hemoglobin 8.2 g/dL (13.0-17.5) Hematocrit 24.0 % (39.0-53.0) Mean Corpuscular Volume 88 fL (79-100) Mean Corpuscular Hemoglobin 30 pg (25-35) Mean Corpuscular Hemoglobin Concent 34 g/dL (31-37) Red Cell Distribution Width 16.7 % (11.5-14.5) Platelet Count 79 x10^3/uL (140-400) Neutrophils (%) (Auto) 63 % (31-73) Lymphocytes (%) (Auto) 22 % (24-48) Monocytes (%) (Auto) 12 % (0-9) Eosinophils (%) (Auto) 2 % (0-3) Basophils (%) (Auto) 1 % (0-3) Neutrophils # (Auto) 1.6 x10^3/uL (1.8-7.7) Lymphocytes # (Auto) 0.6 x10^3/uL (1.0-4.8) Monocytes # (Auto) 0.3 x10^3/uL (0.0-1.1) Eosinophils # (Auto) 0.1 x10^3/uL (0.0-0.7) Basophils # (Auto) 0.0 x10^3/uL (0.0-0.2) Sodium Level 143 mmol/L (136-145) Potassium Level 3.4 mmol/L (3.5-5.1) Chloride Level 103 mmol/L (98-107) Carbon Dioxide Level 27 mmol/L (21-32) Anion Gap 13 (6-14) Blood Urea Nitrogen 39 mg/dL (8-26) Creatinine 8.8 mg/dL (0.7-1.3) Estimated GFR (Cockcroft-Gault) 7.5 Glucose Level 80 mg/dL (70-99) Calcium Level 8.7 mg/dL (8.5-10.1) Phosphorus Level 5.3 mg/dL (2.6-4.7) Albumin 2.4 g/dL (3.4-5.0) Lipase 389 U/L (73-393) Hepatitis B Surface Antigen Nonreactive (Nonreactive) Test 08/02/21 11:49 Glucose (Fingerstick) 66 mg/dL (70-99) Assessment and Plan Assessmemt and Plan Problems Medical Problems: (1) Headache Status: Acute (2) Pancreatitis Status: Acute Comment Review of Relevant I have reviewed the following items giselle (where applicable) has been applied. Medications: Current Medications Medications (Trade) Dose Ordered Sig/Steven Route PRN Reason Start Time Stop Time Status Last Admin Dose Admin Fentanyl Citrate (Fentanyl 2ml Vial) 50 mcg PRN Q2HR PRN IVP PAIN 08/01/21 13:45 08/01/21 14:51 Amlodipine Besylate (Norvasc) 10 mg DAILY PO 08/02/21 12:15 08/02/21 12:16 Justifications for Admission General Conditions Other justification for admit: Acute on chronic pancreatitis Other Justification SHAWN DIXON MD Aug 02, 2021 12:57
[2021-08-02 14:49] VITALS: BP 148/71
[2021-08-02 19:30] VITALS: BP 168/91
[2021-08-02 23:46] VITALS: BP 138/52
[2021-08-03] MEDS: IV DEXTROSE 5% - 0.9 % NACL 1,000 ML IV SCH ×2 (03:12→11:40)
[2021-08-03 03:23] VITALS: BP 168/83
[2021-08-03] MEDS: HEPARIN for SUB-Q USE 5,000 UNIT/ML VIAL. SQ SCH ×2 (06:03→11:40)
[2021-08-03 07:00] VITALS: BP 162/82
[2021-08-03 07:28] LABS: BASO % 1 % (0-3); EOS % 2 % (0-3); HEMATOCRIT 25.7 % (39.0-53.0); HEMOGLOBIN 8.7 g/dL (13.0-17.5); LYMPH # 0.5 x10^3/uL (1.0-4.8); LYMPH % 22 % (24-48); MEAN CORPUSCULAR HEMOGLOBIN 30 pg (25-35); MEAN CORPUSCULAR HGB CONC 34 g/dL (31-37); MEAN CORPUSCULAR VOLUME 88 fL (79-100); MONO # 0.3 x10^3/uL (0.0-1.1); MONO % 12 % (0-9); NEUT # 1.5 x10^3/uL (1.8-7.7); NEUT % 64 % (31-73); PLATELET COUNT 96 x10^3/uL (140-400); RED CELL DISTRIBUTION WIDTH 16.8 % (11.5-14.5); WHITE BLOOD COUNT 2.4 x10^3/uL (4.0-11.0)
[2021-08-03] MEDS: INSULIN LISPRO 300 UNITS/3 ML VIAL. SQ SCH ×3 (08:00→16:42)
[2021-08-03] MEDS: PANTOPRAZOLE 40 MG TABLET.DR. PO SCH (08:30)
--- NOTE | 2021-08-03 09:23 | PDOC3 ---
[facility]-Discharge Summary Date of Admission: Date of Admission: Jul 30, 2021 Date of Discharge: Date of Discharge: Aug 03, 2021 Admission Diagnosis: Problems: (1) Pancreatitis (2) End stage renal disease on dialysis Discharge Diagnosis: Discharge Diagnosis: Same Consults: Consults: GI, Nephrology Hospital Course: Hospital Course: Chief Complaint Chief Complaint Acute on chronic pancreatitis ESRD on HD Normocytic anemia Moderate malnutrition Plan: Provide judicious IV fluids given history of ESRD. Difficult situation that may require IV fluids followed by ultrafiltration for removal of possible fluid overload. Consultation placed to nephrology Consultation placed to GI Given CT findings of fullness of pancreatic head, may be necessary to repeat CT after IV fluids or obtain MRI to further evaluate for underlying pancreatic mass as there are no prior images to compare. FEN - NPO for now PPX - Heparin FULL CODE Dispo - inpatient for above Patient and his brother (Hunter Vargas) as surrogate decision-maker History of Present Illness History of Present Illness Patient is a 60-year-old male with past medical history recurrent pancreatitis, ESRD on HD Sunday//Sunday, who presents to the ED with complaints of worsening abdominal pain over the past 5 days. Reports associated nausea, vomiting, abdominal distention, and headache. He was able to obtain his regular scheduled hemodialysis today, but presents to the ED due to worsening pain. Labs on admission showed hemoglobin 9.4, hematocrit 27.5, potassium 3.2, creatinine 3.4, AST 45, ALT 55, alk phos 154, albumin 2.9, lipase 2215, triglycerides 71. Admits to history of pancreatitis with cholecystectomy. He has been seen by a safety and security manager in the past and told that his pancreatitis was probably due to spicy foods. He denies history of tobacco use, alcohol use, drug use 07/31/2021: Afebrile, breathing on room air. Lipase improving. Epigastric pain improving. Complains of some itching; will order prn benadryl. Hypokalemia noted today, (K-3.0). Will provide additional 1 L normal saline, and be very cautious regarding volume overload. We will try to continue to coordinate IV fluids with HD/ultrafiltration. Appreciate nephrology and GI recommendations in the management of this patient. 08/01 Patient evaluated at bedside he was resting in bed when I saw him. Says his abdominal pain has improved somewhat but is definitely still present. He says he is not ready to try diet yet but will have clear liquid diet ordered and available for him in case he would like to. Otherwise continue current plan. GI following. Nephro following for dialysis. Plan of care discussed with bedside RN. 08/02 Patient evaluated at bedside after he returned from dialysis. Abdominal pain improving. Tolerating clear liquid diet will advance to [place] for dinner tonight. For some reason very hypertensive after dialysis today up to 190 systolic. Patient not having any symptoms however. We will plan to monitor pressures overnight after resuming some home meds today. 08/03 Patient evaluated at bedside this morning. Resting in bed doing well, no complaints. Tolerated dinner and breakfast this morning. Blood pressures were stable. We will discharge today Disposition: Disposition/Orders: D/C to Home Activity: Activity: Resume previous activity Diet: Diet: other (As tolerated) Medications: Home Meds Reported Medications Insulin Aspart (NOVOLOG FLEXPEN) 100 Unit/1 Ml Insuln.pen, 8 UNIT SQ TIDWMEALS for dm, SYR 08/01/21 Insulin Detemir (Levemir Flextouch) 100 Unit/1 Ml Insuln.pen, 10 UNIT SQ HS for dm, SYR 08/01/21 Gabapentin (GABAPENTIN ) 100 Mg Capsule, 200 MG PO BID for NEUROGENIC PAIN, CAP 08/01/21 Cyclobenzaprine Hcl (CYCLOBENZAPRINE HCL) 10 Mg Tablet, 1 TAB PO TID for muscle relaxer, #90 TAB 08/01/21 Pregabalin (LYRICA) 150 Mg Capsule, 150 MG PO TID for pain for 30 Days, #90 CAP 08/01/21 Oxycodone Hcl (OXYCODONE HCL IMMED.RELEASE) 10 Mg Tablet, 10 MG PO PRN Q6HRS PRN for PAIN, TAB 0 Refills 08/01/21 Sevelamer Carbonate (RENVELA) 800 Mg Tablet, 2 TAB PO TID for kidneys for 30 Days, #180 TAB 0 Refills 08/01/21 Pantoprazole Sodium (PROTONIX ) 40 Mg Tablet.dr, 40 MG PO BIDAC for GERD, TAB 08/01/21 Hydroxyzine Hcl (HYDROXYZINE HCL) 25 Mg Tablet, 1 TAB PO DAILY for itching, #30 TAB 08/01/21 Amlodipine Besylate (AMLODIPINE BESYLATE) 10 Mg Tablet, 10 MG PO 10/12/13 Aspirin (EDA CHEWABLE) 81 Mg Tab.chew, 81 MG PO 10/12/13 Scheduled Cyclobenzaprine Hcl (Cyclobenzaprine Hcl), 1 TAB PO TID, (Reported) Gabapentin (Gabapentin ), 200 MG PO BID, (Reported) Hydroxyzine Hcl (Hydroxyzine Hcl), 1 TAB PO DAILY, (Reported) Insulin Aspart (Novolog Flexpen), 8 UNIT SQ TIDWMEALS, (Reported) Insulin Detemir (Levemir Flextouch), 10 UNIT SQ HS, (Reported) Pantoprazole Sodium (Protonix ), 40 MG PO BIDAC, (Reported) Pregabalin (Lyrica), 150 MG PO TID, (Reported) Sevelamer Carbonate (Renvela), 2 TAB PO TID, (Reported) Scheduled PRN Oxycodone Hcl (Oxycodone Hcl Immed.release), 10 MG PO PRN Q6HRS PRN for PAIN, (Reported) Miscellaneous Medications Amlodipine Besylate (Amlodipine Besylate), 10 MG PO, (Reported) Aspirin (Eda Chewable), 81 MG PO, (Reported) Justicifation of Admission Dx: Justifications for Admission: Justification of Admission Dx: N/A SHAWN DIXON MD Aug 03, 2021 09:23
--- NOTE | 2021-08-03 09:45 | PDOC ---
DATE OF SERVICE DATE: 08/03/21 TIME: 09:44 SUBJECTIVE ROS Denies N/V. Had breakfast this morning Abdominal pain much better OBJECTIVE Vital Signs Vital Signs Date Time Temp Pulse Resp B/P (MAP) Pulse Ox O2 Delivery O2 Flow Rate FiO2 08/03/21 08:30 84 162/82 08/03/21 08:00 Room Air 08/03/21 07:00 98.2 20 100 98.2 I & 0 Intake and Output 08/03/21 07:00 Intake Total 240 ml Balance 240 ml Intake Oral 240 ml PHYSICAL EXAM Physical Exam General: No acute distress HEENT: PERRLA, EOMI, OM moist Lungs: Clear to auscultation, Non labored Heart: RRR, no murmurs Cardiovascular: S1, S2 Abdomen: Epigastric tenderness. Abdominal distention. Normal bowel sounds, Soft. Extremities: Left BKA. No clubbing, No cyanosis Skin: No rashes, No significant lesion Neuro: Normal speech, Normal tone, Sensation intact Psych/Mental Status: Mental status NL, Mood NL No persaud, No CVA or SP tenderness DIAGNOSIS/ASSESSMENT Assessment & Plan ESRD on HD TTS, under Dr. Berkowitz 's care . Currently No indication for dialysis today Acute on chronic pancreatitis- CT findings of fullness of pancreatic head,GI following Anemia- Monitor HTN- Home antihypertensives DM per primary Chronic Bladder Outlet obstruction on CT COMMENT/RELEVANT DATA Meds Current Medications Medications (Trade) Dose Ordered Sig/Steven Start Time Stop Time Status Last Admin Dose Admin Acetaminophen (Tylenol) 650 mg PRN Q6HRS PRN 07/30/21 18:15 Albumin Human 200 ml @ 200 mls/hr 1X PRN PRN 08/02/21 07:30 08/02/21 13:29 DC Amlodipine Besylate (Norvasc) 10 mg DAILY 08/02/21 12:15 08/03/21 08:30 10 MG Calcium Carbonate/ Glycine (Tums) 500 mg PRN Q3HRS PRN 07/30/21 18:15 Dextrose (Dextrose 50%-Water Syringe) 12.5 gm PRN Q15MIN PRN 07/30/21 18:15 Dextrose/Sodium Chloride 1,000 ml @ 70 mls/hr [id number] 07/31/21 18:00 08/01/21 11:09 70 MLS/HR Diphenhydramine HCl (Benadryl) 25 mg PRN Q6HRS PRN 07/31/21 09:00 08/01/21 13:05 25 MG Fentanyl Citrate (Fentanyl 2ml Vial) 50 mcg PRN Q2HR PRN 08/01/21 13:45 08/01/21 14:51 50 MCG Heparin Sodium (Porcine) (Heparin Sodium) 5,000 unit Q8HRS 07/30/21 22:00 08/03/21 06:03 5,000 UNIT Hydralazine HCl (Apresoline Inj) 10 mg PRN Q4HRS PRN 07/30/21 18:15 Hydromorphone HCl (Dilaudid) 2 mg PRN Q4HRS PRN 07/30/21 18:00 08/01/21 13:47 DC 07/31/21 23:10 2 MG Info (PHARMACY MONITORING -- do not chart) 1 each PRN DAILY PRN 08/02/21 07:30 Insulin Human Lispro (HumaLOG) 0-9 UNITS TIDWMEALS 07/31/21 08:00 Metoclopramide HCl (Reglan Vial) 10 mg 1X ONCE 07/30/21 15:15 07/30/21 15:20 DC 07/30/21 15:20 10 MG Ondansetron HCl (Zofran) 4 mg PRN Q6HRS PRN 07/30/21 18:15 Pantoprazole Sodium (Protonix) 40 mg DAILYAC 08/01/21 12:00 08/03/21 08:30 40 MG Sodium Chloride 1,000 ml @ 400 mls/hr Q2H30M PRN 08/02/21 07:30 08/02/21 19:29 DC Lab Laboratory Tests Test 08/02/21 11:49 08/02/21 16:42 08/02/21 21:08 08/03/21 06:40 Glucose (Fingerstick) 66 mg/dL (70-99) 94 mg/dL (70-99) 185 mg/dL (70-99) White Blood Count 2.4 x10^3/uL (4.0-11.0) Red Blood Count 2.90 x10^6/uL (4.30-5.70) Hemoglobin 8.7 g/dL (13.0-17.5) Hematocrit 25.7 % (39.0-53.0) Mean Corpuscular Volume 88 fL (79-100) Mean Corpuscular Hemoglobin 30 pg (25-35) Mean Corpuscular Hemoglobin Concent 34 g/dL (31-37) Red Cell Distribution Width 16.8 % (11.5-14.5) Platelet Count 96 x10^3/uL (140-400) Neutrophils (%) (Auto) 64 % (31-73) Lymphocytes (%) (Auto) 22 % (24-48) Monocytes (%) (Auto) 12 % (0-9) Eosinophils (%) (Auto) 2 % (0-3) Basophils (%) (Auto) 1 % (0-3) Neutrophils # (Auto) 1.5 x10^3/uL (1.8-7.7) Lymphocytes # (Auto) 0.5 x10^3/uL (1.0-4.8) Monocytes # (Auto) 0.3 x10^3/uL (0.0-1.1) Eosinophils # (Auto) 0.0 x10^3/uL (0.0-0.7) Basophils # (Auto) 0.0 x10^3/uL (0.0-0.2) Lipase 398 U/L (73-393) Test 08/03/21 07:23 Glucose (Fingerstick) 129 mg/dL (70-99) Results All relevant outside records, renal labs, imaging studies, telemetry/EKG's were reviewed. Justicifation of Admission Dx: Justifications for Admission: Justification of Admission Dx: N/A GRAHAM ROSEN MD Aug 03, 2021 09:45
--- NOTE | 2021-08-03 09:50 | PDOC ---
Date of Service: DATE: 08/03/21 TIME: 09:49 Subjective: Subjective: Less abdominal pain. Tolerated regular breakfast. No n/v. Stooling. Objective: Vital Signs: Vital Signs Date Time Temp Pulse Resp B/P (MAP) Pulse Ox O2 Delivery O2 Flow Rate FiO2 08/03/21 08:30 84 162/82 08/03/21 08:00 Room Air 08/03/21 07:00 98.2 20 100 98.2 Labs: Laboratory Tests Test 08/02/21 11:49 08/02/21 16:42 08/02/21 21:08 08/03/21 07:23 Glucose (Fingerstick) 66 mg/dL (70-99) 94 mg/dL (70-99) 185 mg/dL (70-99) 129 mg/dL (70-99) PE: GEN: NAD LUNGS: CTAB HEART: RRR ABD: soft, less epigastric/LUQ discomfort NEURO/PSYCH: A & O 3 A/P: Acute on chronic pancreatitis - investigation ongoing @ [facility] - improved Pancytopenia, ESRD on HD -- Dc per primary, keep scheduled follow-up w/ [facility]. Justicifation of Admission Dx: Justifications for Admission: Justification of Admission Dx: N/A MERA CUMMINGS Aug 03, 2021 09:50
[2021-08-03 11:00] VITALS: BP 172/78
[2021-08-03 15:00] VITALS: BP 168/75
--- NOTE | 2021-08-03 18:07 | NUR ---
Discharge Note: [facility] [place] Discharge instructions and discharge home medications reviewed with Patient and a copy given. All questions have been answered and understanding verbalized. The following instructions and handouts were given: information about medications, activity, diet, follow up appointments, dialysis. Discontinued lines and drains: no IV line present. Patient discharged to home with self care, wheelchair used for mobility to [facility].
== END 2021-08-03 18:07 | disposition home or self-care (01) | DRG 438 ==
LOC: ER 13:03 → ED HOLD 16:07 → 4 NORTH 17:07
PROVIDERS: ADMIT Family Medicine; ATTEND Family Medicine
PROC: 5A1D70Z Performance of Urinary Filtration, Intermittent, Less than 6 Hours Per Day (ICD-10-PCS; principal; 2021-08-02)
DX: K85.90 Acute pancreatitis without necrosis or infection, unspecified (principal); N18.6 End stage renal disease; D61.818 Other pancytopenia; E44.0 Moderate protein-calorie malnutrition; I12.0 Hypertensive chronic kidney disease with stage 5 chronic kidney disease or end stage renal disease; M84.48XA Pathological fracture, other site, initial encounter for fracture; E11.22 Type 2 diabetes mellitus with diabetic chronic kidney disease; E11.40 Type 2 diabetes mellitus with diabetic neuropathy, unspecified; E87.6 Hypokalemia; K40.20 Bilateral inguinal hernia, without obstruction or gangrene, not specified as recurrent; K57.30 Diverticulosis of large intestine without perforation or abscess without bleeding; K86.1 Other chronic pancreatitis; N32.0 Bladder-neck obstruction; Z88.5 Allergy status to narcotic agent; Z88.8 Allergy status to other drugs, medicaments and biological substances; Z82.49 Family history of ischemic heart disease and other diseases of the circulatory system; Z89.512 Acquired absence of left leg below knee; Z90.49 Acquired absence of other specified parts of digestive tract; Z99.2 Dependence on renal dialysis; Z89.421 Acquired absence of other right toe(s); Z68.28 Body mass index [BMI] 28.0-28.9, adult
CPT/HCPCS: 36415; 70450; 74176; 80048; 80053; 80069; 82962; 83690; 84478; 85025; 86317; 87340; 93005; 96374; 96375; J1170; J1200; J1644; J2405; J2765; J3010; J7030; J7042; 99285-25; G0378